=== PATIENT | female | born 1935 | race Caucasian/White ===

== ENCOUNTER 2017-01-08 07:59 | Inpatient (IN) | payer MEDICARE, BC ==
[2017-01-08 08:46] LABS: Hematocrit 43 % (35-47); Mean Corpuscular HGB Conc 33 g/dl (31-36); Mean Corpuscular Hemoglobin 29 pg (27-31); Mean Corpuscular Volume 88 fL (80-97); Mean Platelet Volume 8 um3 (7.4-10.4); Red Blood Count 4.89 10^6/ul (4.0-5.4); Red Cell Distribution Width 15 % (10.5-15); White Blood Count 13.2 10^3/ul (3.5-10.8)
[2017-01-08 08:57] LABS: Albumin 3.7 g/dL (3.2-5.2); BUN/Creatinine Ratio 15.2 (8-20); Calcium 9.6 mg/dL (8.6-10.3); EGFR African American 90.1 (>60); Magnesium 1.9 mg/dL (1.9-2.7); Potassium 3.9 mmol/L (3.5-5.0); Total Bilirubin 0.8 mg/dL (0.2-1.0); Total Protein 6.7 g/dL (6.4-8.9)
[2017-01-08 09:00] LABS: Troponin I 0.01 ng/mL (<0.04)
[2017-01-08 09:33] LABS: TSH (Thyroid Stimulating Horm) 6.83 mcIU/mL (0.34-5.60)
--- NOTE | 2017-01-08 09:35 | RAD ---
Indication: RIGHT hip pain post fall. Comparison: November 14, 2012 CT. Technique: AP pelvis and AP and frog-leg lateral views RIGHT hip. Report: Fractures of the RIGHT superior and inferior pubic rami with only mild inferior displacement. No additional pelvic fracture or joint diastases evident. The RIGHT hip is normally located. No suspicious cortical or trabecular irregularity evident at the RIGHT femoral neck to indicate fracture. Unremarkable soft tissue contours. IMPRESSION: RIGHT superior and inferior pubic rami fractures. No radiographic evidence for RIGHT hip fracture.
[2017-01-08 09:37] LABS: Urine Bacteria Absent (Absent); Urine Bilirubin Negative (Negative); Urine Glucose Negative (Negative); Urine Nitrite Negative (Negative)
[2017-01-08] MEDS ORDERED: HYDROmorphone* 1 MG/ML 1 ML SYR IV ONE (09:57)
[2017-01-08] MEDS ORDERED: Ondansetron INJ* 2 MG/ML VIAL IV ONE (09:57)
[2017-01-08] MEDS ORDERED: Ketorolac INJ* 30 MG/ML 1 ML VIAL IV ONE (09:57)
--- NOTE | 2017-01-08 10:57 | ED ---
Brendon Romo Angela, scribed for Shyam Lu MD on 01/08/17 at 0830 . Dizziness - HPI Summary HPI Summary: This pt is a 81 y/o female BIBA [facility] [place]/o right hip pain s/p fall today in the morning. Pt reports she felt light-headed and dizzy as she go up from her bed to go to the bathroom. Pt fell afterwards immediately first on her knee, scraping it, and hitting her right hip. Her hip pain is aggravated by movement and alleviated when resting. Pt denies knee pain, chest pain, SOB, palpitations, lower extremity pain, headache, head strike, abd pain. - History Of Current Complaint Chief Complaint: EDGeneral Stated Complaint: FALL/DIZZY Hx Obtained From: Patient Character: Lightheaded - now resolved, Dizzy - now resolved Aggravating Factor(s): Other - standing up abruptly from bed Alleviating Factor(s): Lying Down Associated Signs And Symptoms: Negative: Chest Pain, SOB, Palpitations, Fever, Chills, Inability to Walk - Allergies/Home Medications Allergies/Adverse Reactions: Allergies Allergy/AdvReac Type Severity Reaction Status Date / Time Iodine Allergy Hives Verified 01/08/17 08:20 Loratadine [From Claritin] Allergy See Comment Verified 01/08/17 08:20 Shellfish Allergy Allergy Hives Verified 01/08/17 08:20 ENVIRONMENTAL/SEASONAL Allergy SNEEZE,WATERY Uncoded 01/08/17 08:20 HAYFEVER EYES, CONGESTION PMH/Surg Hx/FS Hx/Imm Hx Endocrine/Hematology History: Reports: Hx Anticoagulant Therapy - coumadin Denies: Hx Diabetes, Hx Thyroid Disease Cardiovascular History: Reports: Other Cardiovascular Problems/Disorders Denies: Hx Hypertension, Hx Pacemaker/ICD Respiratory History: Reports: Hx Asthma - 10-12 YEARS, Hx Chronic Obstructive Pulmonary Disease (COPD), Hx Pulmonary Embolism - 1983-IN RIGHT LUNG, Other Respiratory Problems/Disorders - PE RIGHT LUNG History: Reports: Hx Kidney Stones - RIGHT SIDE Denies: Hx Renal Disease Sensory History: Reports: Hx Contacts or Glasses - GLASSES Denies: Hx Hearing Aid Opthamlomology History: Reports: Hx Contacts or Glasses - GLASSES Neurological History: Reports: Other Neuro Impairments/Disorders - OCCASIONAL VERTIGO Denies: Hx Dementia, Hx Seizures Psychiatric History: Denies: Hx Panic Disorder, Hx Substance Abuse - Cancer History Hx Chemotherapy: No Hx Radiation Therapy: No - Surgical History Surgery Procedure, Year, and Place: 1966 RIGHT INGUINAL HERNIA REPAIR, [facility]. 1984 HYSTERECTOMY, [facility] [place]. 2006 BOWEL RESECTION, [facility] [place]. KIDNEY STONE REMOVAL 1 YR. TEETH REMOVED 1 YR AGO/ DENTAL IMPLANTS PUT IN Hx Anesthesia Reactions: No Infectious Disease History: Denies: Hx Hepatitis, Hx Human Immunodeficiency Virus (HIV), Traveled Outside the [place] in Last 30 Days - Social History Alcohol Use: Rare Substance Use Type: Reports: None Smoking Status (MU): Never Smoked Tobacco Review of Systems Negative: Fever, Chills Negative: Chest Pain Negative: Shortness Of Breath Negative: Abdominal Pain Positive: Other - Right hip pain Neurological: Other - POSITIVE: dizziness (now resolved) Negative: Headache All Other Systems Reviewed And Are Negative: Yes Physical Exam Triage Information Reviewed: Yes Vital Signs On Initial Exam: Initial Vitals Temp Pulse Resp BP Pulse Ox 98.9 F 76 20 130/55 95 01/08/17 08:17 01/08/17 08:17 01/08/17 08:17 01/08/17 08:17 01/08/17 08:17 Vital Signs Reviewed: Yes Appearance: Positive: Well-Appearing, No Pain Distress Skin: Positive: Warm, Skin Color Reflects Adequate Perfusion, Dry Head/Face: Positive: Normal Head/Face Inspection Eyes: Positive: Normal ENT: Positive: Normal ENT inspection Neck: Positive: Supple, Nontender Respiratory/Lung Sounds: Positive: Clear to Auscultation, Breath Sounds Present Cardiovascular: Positive: RRR Abdomen Description: Positive: Nontender, Soft Bowel Sounds: Positive: Present Musculoskeletal: Positive: Normal Neurological: Positive: Normal Psychiatric: Positive: Normal, Affect/Mood Appropriate Diagnostics - Vital Signs Vital Signs Temp Pulse Resp BP Pulse Ox 01/08/17 08: 98.9 F 76 20 130/55 95 - Laboratory Lab Results: Lab Results 01/08/17 01/08/17 01/08/17 Range/Units 08:30 08:30 08:30 WBC 13.2 H (3.5-10.8) 10^3/ul RBC 4.89 (4.0-5.4) 10^6/ul Hgb 14.0 (12.0-16.0) g/dl Hct 43 (35-47) % MCV 88 (80-97) fL MCH 29 (27-31) pg MCHC 33 (31-36) g/dl RDW 15 (10.5-15) % Plt Count 218 (150-450) 10^3/ul MPV 8 (7.4-10.4) um3 Neut % (Auto) 84.5 H (38-83) % Lymph % (Auto) 7.3 L (25-47) % [place] % (Auto) 6.9 (1-9) % Eos % (Auto) 0.9 (0-6) % Baso % (Auto) 0.4 (0-2) % Absolute Neuts (auto) 11.1 H (1.5-7.7) 10^3/ul Absolute Lymphs (auto) 1.0 (1.0-4.8) 10^3/ul Absolute Monos (auto) 0.9 H (0-0.8) 10^3/ul Absolute Eos (auto) 0.1 (0-0.6) 10^3/ul Absolute Basos (auto) 0.1 (0-0.2) 10^3/ul Absolute Nucleated RBC 0 10^3/ul Nucleated RBC % 0 INR (Anticoag Therapy) (0.89-1.11) Sodium 141 (133-145) mmol/L Potassium 3.9 (3.5-5.0) mmol/L Chloride 107 (101-111) mmol/L Carbon Dioxide 29 (22-32) mmol/L Anion Gap 5 (2-11) mmol/L BUN 12 (6-24) mg/dL Creatinine 0.79 (0.51-0.95) mg/dL Est GFR ( Amer) 90.1 (>60) Est GFR (Non-Af Amer) 70.0 (>60) BUN/Creatinine Ratio 15.2 (8-20) Glucose 118 H (70-100) mg/dL Lactic Acid 1.9 (0.5-2.0) mmol/L Calcium 9.6 (8.6-10.3) mg/dL Magnesium 1.9 (1.9-2.7) mg/dL Total Bilirubin 0.80 (0.2-1.0) mg/dL AST 19 (13-39) U/L ALT 11 (7-52) U/L Alkaline Phosphatase 75 (34-104) U/L Troponin I 0.01 (<0.04) ng/mL Total Protein 6.7 (6.4-8.9) g/dL Albumin 3.7 (3.2-5.2) g/dL Globulin 3.0 (2-4) g/dL Albumin/Globulin Ratio 1.2 (1-3) TSH 6.83 H (0.34-5.60) mcIU/mL Urine Color Urine Appearance Urine pH (5-9) Ur Specific [place] (1.010-1.030) Urine Protein (Negative) Urine Ketones (Negative) Urine Blood (Negative) Urine Nitrate (Negative) Urine Bilirubin (Negative) Urine Urobilinogen (Negative) Ur Leukocyte Esterase (Negative) Urine WBC (Auto) (Absent) Urine RBC (Auto) (Absent) Urine Bacteria (Absent) Urine Glucose (Negative) Urine Ascorbic Acid (Negative) 01/08/17 01/08/17 Range/Units 08:30 09:05 WBC (3.5-10.8) 10^3/ul RBC (4.0-5.4) 10^6/ul Hgb (12.0-16.0) g/dl Hct (35-47) % MCV (80-97) fL MCH (27-31) pg MCHC (31-36) g/dl RDW (10.5-15) % Plt Count (150-450) 10^3/ul MPV (7.4-10.4) um3 Neut % (Auto) (38-83) % Lymph % (Auto) (25-47) % [place] % (Auto) (1-9) % Eos % (Auto) (0-6) % Baso % (Auto) (0-2) % Absolute Neuts (auto) (1.5-7.7) 10^3/ul Absolute Lymphs (auto) (1.0-4.8) 10^3/ul Absolute Monos (auto) (0-0.8) 10^3/ul Absolute Eos (auto) (0-0.6) 10^3/ul Absolute Basos (auto) (0-0.2) 10^3/ul Absolute Nucleated RBC 10^3/ul Nucleated RBC % INR (Anticoag Therapy) 1.25 H (0.89-1.11) Sodium (133-145) mmol/L Potassium (3.5-5.0) mmol/L Chloride (101-111) mmol/L Carbon Dioxide (22-32) mmol/L Anion Gap (2-11) mmol/L BUN (6-24) mg/dL Creatinine (0.51-0.95) mg/dL Est GFR ( Amer) (>60) Est GFR (Non-Af Amer) (>60) BUN/Creatinine Ratio (8-20) Glucose (70-100) mg/dL Lactic Acid (0.5-2.0) mmol/L Calcium (8.6-10.3) mg/dL Magnesium (1.9-2.7) mg/dL Total Bilirubin (0.2-1.0) mg/dL AST (13-39) U/L ALT (7-52) U/L Alkaline Phosphatase (34-104) U/L Troponin I (<0.04) ng/mL Total Protein (6.4-8.9) g/dL Albumin (3.2-5.2) g/dL Globulin (2-4) g/dL Albumin/Globulin Ratio (1-3) TSH (0.34-5.60) mcIU/mL Urine Color Yellow Urine Appearance Clear Urine pH 5.0 (5-9) Ur Specific [place] 1.009 L (1.010-1.030) Urine Protein Negative (Negative) Urine Ketones Negative (Negative) Urine Blood 3+ H (Negative) Urine Nitrate Negative (Negative) Urine Bilirubin Negative (Negative) Urine Urobilinogen Negative (Negative) Ur Leukocyte Esterase Negative (Negative) Urine WBC (Auto) Trace(0-5/hpf) (Absent) Urine RBC (Auto) 3+(>10/hpf) H (Absent) Urine Bacteria Absent (Absent) Urine Glucose Negative (Negative) Urine Ascorbic Acid * H (Negative) Result Diagrams: 01/08/17 08:30 01/08/17 08:30 Lab Statement: Any lab studies that have been ordered have been reviewed, and results considered in the medical decision making process. - Radiology Right Hip XR Xray Interpretation: No Acute Changes - IMPRESSION: Right superior and inferior pubic rami fractures. No radiographic evidence for right hip fracture. ED physician has reviewed this radiology report and agrees. Radiology Interpretation Completed By: Radiologist - EKG 8:52 Cardiac Rate: NL - 76 bpm EKG Rhythm: Sinus Rhythm Dizzy Course/Dx - Course Course Of Treatment: Ms. Kendrick presented C/O right hip pain after getting up quicky from bed to use the bathroom. Normally she takes her time and this time she got lightheaded and dizzy but doesn't think she fainted. Her W/U was normal here except for right pelvic fractures. After a small amount of IV pain medication, she was able to bear weight however she fainted again. She was not on the monitor at the time. She will be admitted to the hospitalist service. - Diagnoses Provider Diagnoses: Pelvic fracture, Syncope - Provider Notifications Discussed Care Of Patient With: Inés Loomis Time Discussed With Above Provider: 10:30 Instructed by Provider To: Other - Discussed pt's case with Dr. Loomis. She agreed to admit the pt. Discharge - Discharge Plan Condition: Stable Disposition: ADMITTED TO [facility] Referrals: Staci Bruce MD [Primary Care Provider] - The documentation as recorded by the Brendon duran Angela accurately reflects the service I personally performed and the decisions made by , Shyam Lu MD.
--- NOTE | 2017-01-08 11:01 | RAD ---
INDICATION: Syncope COMPARISON: December 08, 2007 TECHNIQUE: Noncontrast axial source images were acquired from the skull base to the vertex. FINDINGS: Ventricles/sulci: There is cortical atrophy with compensatory dilatation of the CSF spaces. Brain parenchyma: There is no focal parenchymal finding, evidence of intracranial mass, or intracranial mass effect. Intracranial hemorrhage:None. Extra-axial spaces: There are no abnormal extra axial fluid collections or evidence of extra-axial mass. Calvarium: There is no calvarial fracture or other calvarial abnormality. Scalp: There is no evidence of scalp or extracalvarial soft tissue abnormality. Paranasal sinuses/mastoid: The paranasal sinuses and mastoid air cells are clear. Other: None. IMPRESSION: Moderate cortical atrophy. No acute findings.
--- NOTE | 2017-01-08 11:03 | RAD ---
INDICATION: Short of breath COMPARISON: November 29, 2013 TECHNIQUE: PA and lateral dual-energy views were obtained. FINDINGS: Bones/Soft Tissues: There are no acute bony findings. Cardiomediastinal: The cardiomediastinal silhouette is normal. Lungs: There is mild chronic nodular infiltrative change in the right middle lobe. The remaining lung carcamo are clear. Pleura: There are no pleural effusions. Other: None IMPRESSION: MILD, CHRONIC, RIGHT MIDDLE LOBE FINDINGS. NO ACUTE CHANGES
[2017-01-08] MEDS ORDERED: NS 0.9% 1000 ML* 1,000 ML IV ONE (11:13)
[2017-01-08] MEDS ORDERED: Albuterol 2.5 MG/3 ML NEB.SOL* (0.083%) INH PRN (12:14)
[2017-01-08] MEDS ORDERED: Ondansetron INJ* 2 MG/ML VIAL IV PRN (12:14)
[2017-01-08] MEDS ORDERED: Acetaminophen TAB* 325 MG PO PRN (12:14)
[2017-01-08] MEDS ORDERED: Perflutren Lipid Microsphere* 3 ML VIAL ONE (15:28)
--- NOTE | 2017-01-08 15:45 | HP ---
ATTENDING'S ADDENDUM NOW INCLUDED ON THIS REPORT CC: Dr. Lerner * HISTORY AND PHYSICAL: DATE OF ADMISSION: 01/08/17 PRIMARY CARE PROVIDER: Dr. Lerner from [place]. ATTENDING PHYSICIAN WHILE IN THE HOSPITAL: Inés Loomis MD * (report dictated by José Del Rio NP) CHIEF COMPLAINT: Fall. HISTORY OF PRESENTING ILLNESS: Mrs. Kendrick is an 81-year-old female patient. She has a history of emphysema. She is on O2 2L as needed and at bedtime. She comes in today because she was getting up to use the bathroom, she was using her walker and she fell. She said she remembers the fall, she did not hit her head, she landed on her knee, landed on her right hip. She had a significant amount of pain. She tried getting up, but could not. She was able to reach her LifeAlert and she pressed this and the ambulance was summoned and she was brought into the hospital. She denied having any chest pain prior to or after the fall. She said she does not believe she passed out. She denied any recent cough or fevers or chills. She denies feeling any more short of breath than at her baseline. She states that because of the fall, she was brought into the ER and ultimately was found to have a pelvic fracture. The patient was in the ED and they were getting her up to ambulate her because they were going to send her home, but unfortunately she had a syncopal episode there. She did receive Dilaudid prior to this. The last thing she remembers was getting up with a walker, then the next thing she woke up, she was in the ER stretcher. She remembers trying to get up to walk. She thinks she may have been out a minute. She denied any chest pain prior to or after this event. She said she did not get sweaty. She denied having any lightheadedness. There was again concern, because of the syncope and the fact of the fracture, that she may not be able to manage at home. We were asked to evaluate for admission. PAST MEDICAL HISTORY: Significant for: 1. PE. 2. DVT. 3. COPD, she is on 2 L as needed and 2 L at night. PAST SURGICAL HISTORY: She has had a partial colectomy, hysterectomy, and hernia repair. MEDICATIONS: Home meds according to the list that was obtained include: 1. Flovent 2 puffs inhaled b.i.d. 2. Vitamin D3 50,000 units p.o. weekly. 3. Multivitamin 1 tablet p.o. b.i.d. 4. Calcium 1 tablet p.o. daily. 5. Xarelto 20 mg p.o. daily. 6. Symbicort 2 puffs inhaled daily. 7. Clarinex 5 mg p.o. daily. 8. Spiriva 1 capsule inhaled daily. 9. Fosamax 70 mg p.o. weekly. 10. Albuterol 2 puffs inhaled q.i.d. ALLERGIES TO MEDICATIONS: Include IODINE, SHELLFISH, and ENVIRONMENTAL ALLERGIES. FAMILY HISTORY: Mother was diabetic. Father had a history of cancer. SOCIAL HISTORY: She does not smoke. She lives alone. Surrogate decision maker is her daughter, Viktoria. REVIEW OF SYSTEMS: There are no new documented fevers. She denied having any significant weight change. There was no double vision. She denies having any ear discharge. There is no rhinorrhea. No sore throat. No thyroid enlargement. She denied any chest pain. There was no orthopnea. There was no dominant nocturnal dyspnea. There was no abdominal pain. There was no nausea. No vomiting. No dysuria. There was no frequency. There was no loss of consciousness in the ER. She denied any seizure. Review of 14 systems was completed, all others negative. PHYSICAL EXAMINATION GENERAL: At this time, Mrs. Kendrick is an 81-year-old female patient. She is sitting in the hospital bed. She does not appear to be in any acute distress. VITAL SIGNS: Reveals blood pressure 135/51, pulse 92, respirations 18, O2 sat 93% on 5 L, and a temperature of 98.0. HEENT: Head is atraumatic and normocephalic. Eyes: EOMs are intact. Sclerae anicteric and not pale. Throat: Oral mucosa appears to be moist. No oropharyngeal erythema. NECK: Supple. LUNGS: Clear to auscultation. No wheezes, rales, or rhonchi. HEART: Sounds S1, S2. Regular rate and rhythm. No murmurs, rubs, or gallops. ABDOMEN: Soft, flat, nontender. Bowel sounds present. EXTREMITIES: Pulses 2+ throughout. She can move the upper extremities with 5/ 5 strength and the left lower extremity. She does have limited range of motion in the right lower extremity because of pain. Distal CSM checks are intact. NEUROLOGIC: She is awake, alert, oriented x3. Tongue midline. Dairy Machine Operator Farmworker were equal. She had no gross focal deficits. SKIN: There is a small abrasion to the right knee. LABORATORY DATA/DIAGNOSTIC STUDIES: WBC of 13.2, RBC of 4.89, hemoglobin 14.0 , hematocrit 43, and platelet count of 218. INR 1.25. Sodium 141, potassium 3.9, chloride 107, bicarb 29, BUN 12, creatinine of 0.79, glucose 118. Lactate 1.9. Calcium 9.6. Mag 1.9. Total bili 0.8, AST 19, ALT 11. Troponin 0.01. TSH is 6.83. Urine showed 3+ blood, 3+ rbc. She did have a chest x-ray obtained today, which showed chronic right mild lobe findings, no acute changes. Brain CT showed moderate cortical atrophy, no acute findings. Hip, pelvis x-ray showed right superior and inferior pubic rami fractures, no radiographic evidence for right hip fracture. EKG showed a normal sinus rhythm, rate of 76, no ST elevations or T wave inversions. It is reviewed to the previous EKG, appears to be similar. Old medical records were reviewed. ASSESSMENT AND PLAN: Mrs. Kendrick is an 81-year-old female patient who sustained a mechanical fall today and while in the ER, had a syncopal episode. She sustained a pubic rami fracture. We were asked to evaluate for admission. She will be admitted under observation status for: 1. Pubic rami fracture. At this point, I did order some [place] for pain. I ordered a PT evaluation and also OT evaluation with social work eval as she may need placement and we will control her pain with [place]. 2. Syncope. Again, she did syncopize after having 0.5 mg of IV Dilaudid, which certainly may have contributed; however, I do think it is warranted to go ahead and place her on telemetry, cycle her troponins, check an echo, and check orthostatic blood pressures. 3. History of pulmonary embolism and deep venous thrombosis. We will continue her Xarelto. 4. Chronic obstructive pulmonary disease. Continue her nebulizers as prescribed and her oxygen. 5. DVT prophylaxis. Continue Xarelto. 6. Fluid, electrolytes, and nutrition. She can have a heart healthy diet. 7. Code status. She is a DNR. TIME SPENT: On the admission was approximately 60 minutes; greater than half the time spent [id number] with the patient obtaining my history and physical, the other half time was spent going over the plan of care with the patient and implementing plan of care. I did discuss the plan of care with my attending, Dr. Loomis; she is in agreement. JOSÉ DEL RIO NP ADDENDUM: Ms. Kendrick is an 81-year-old female who had a mechanical fall earlier on today and suffered from pelvic fractures. She was evaluated in the ER and she was deemed to be a good candidate for possible discharge. She stood up after dose of IV pain narcotics and had a brief episode of syncope. The patient is going to be placed on overnight observation on telemetry monitored floor with diagnoses of pelvic fractures and syncope. For further details of the patient's presentation and plan, please see history and physical dictated by José Del Rio on 01/08/17 with which I agree. INÉS LOOMIS MD [id number]/[facility] #: [id number]/CPS #: [id number] JORGE
--- NOTE | 2017-01-08 16:09 | HP ---
*ADDENDUM: Ms. Kendrick is an 81-year-old female who had a mechanical fall earlier on today and suffered from pelvic fractures. She was evaluated in the ER and she was deemed to be a good candidate for possible discharge. She stood up after dose of IV pain narcotics and had a brief episode of syncope. The patient is going to be placed on overnight observation on telemetry monitored floor with diagnoses of pelvic fractures and syncope. For further details of the patient's presentation and plan, please see history and physical dictated by José Del Rio on 01/08/17 with which I agree. [id number]/[facility] #: [id number] MTDD
--- NOTE | 2017-01-08 17:13 | ECHO ---
Patient: SRIRAM SEVERINO [facility] Rec#: [id number] : 1935 Date: 01/08/2017 Age: 81y Height: 167.64 cm / 66.0 in Weight: 72.57 kg / 159.9 lbs Sex: F BSA: 1.82 Room#: 448 Admit Date#: 01/08/2017 Type: Inpatient Referring: José Del Rio NP Reading: You Elkins MD Sawmill Equipment Operator: Tyra Shook RDCS,RDMS Transthoracic Echocardiogram Indication: Syncope BP: 102/49 HR: 101 Rhythm: NSR Findings History: AFIB, COPD, PE Technical Comments: The study is technically limited due to poor acoustic windows. Completed 1700 The study is technically limited due to the patient's history of COPD. Left Ventricle: The left ventricular chamber size is decreased. Mild concentric left ventricular hypertrophy is observed. The left ventricle appears hyperdynamic. The estimated ejection fraction is greater than 65%. There is an E to A reversal in the mitral valve flow pattern suggestive of diastolic dysfunction. Left Atrium: The left atrial chamber size is normal. Right Ventricle: The right ventricular cavity size is normal. Right Atrium: The right atrial cavity size is normal. Aortic Valve: The aortic valve structure is not well visualized. There is no evidence of aortic regurgitation. There is no evidence of aortic stenosis. Mitral Valve: There is mitral annular calcification. The mitral valve leaflets are mildly thickened. There is no evidence of mitral regurgitation. There is no evidence of mitral stenosis. Tricuspid Valve: The tricuspid valve leaflets are not thickened. There is no evidence of tricuspid valve regurgitation. Unable to estimate the right ventricular systolic pressure. Pulmonic Valve: The pulmonic valve structure is not well visualized. Pericardium: There is no significant pericardial effusion. Aorta: There is no dilatation of the ascending aorta. There is no dilatation of the aortic arch. The aortic root is not well visualized. Pulmonary Artery: The main pulmonary artery is not well visualized. Venous: The inferior vena cava appears normal in size. Contrast: Definity was used to optimize study. A total of 4 ml was used Conclusions The study is technically limited due to poor acoustic windows. Completed 1700 The study is technically limited due to the patient's history of COPD. Extremely limited study for accurate analysis. The left ventricular chamber size is decreased. Mild concentric left ventricular hypertrophy is observed. The left ventricle appears hyperdynamic. A possible LV outflow gradient , mild at rest, unable to be assessed due to poor imaging. No accurate comments on valve structures can be made due to suboptimal images. No reports of prior studies are offered for comparison Measurements Name Value Normal Range RVDdMajor (2D) 2.4 cm (2.2 - 4.4) RAd ISD 4CH 4.1 cm (3.4 - 4.9) RA (A4C)W 3.9 cm (2.9 - 4.6) Ascending Ao 2.7 cm (2.1 - 3.4) Aortic arch 2.9 cm (1.8 - 3.4) LAd ISD 4CH 4.3 cm (2.9 - 5.3) LA ISD 4CH W 3.8 cm (2.5 - 4.5) Name Value Normal Range LA ESV SP 4CH (A/L) 46.03 ml - LA ESV SP 4CH (MOD) 42.09 ml - Name Value Normal Range MV E-wave Vmax 0.5 m/sec - MV deceleration time 184 msec - MV A-wave Vmax 0.9 m/sec - MV E:A ratio 0.6 ratio - LV lateral e' Vmax 0.08 m/sec - LV E:e' lateral ratio 6.3 ratio - Name Value Normal Range AV Vmax 1.6 m/sec - AV VTI 25 cm - AV peak gradient 10 mmHg - AV mean gradient 5.7 mmHg - LVOT Vmax 1.1 m/sec - LVOT VTI 19.3 cm - LVOT peak gradient 5 mmHg - LVOT mean gradient 2.4 mmHg - MELI Vmax 0.7 m/sec - Name Value Normal Range RAP 8 mmHg - IVC diameter 2.1 cm - Name Value Normal Range PV Vmax 0.7 m/sec - PV peak gradient 2 mmHg -
[2017-01-08 19:58] LABS: Hematocrit 37 % (35-47); Hemoglobin 12.3 g/dl (12.0-16.0); Mean Corpuscular HGB Conc 33 g/dl (31-36); Mean Corpuscular Hemoglobin 29 pg (27-31); Mean Corpuscular Volume 89 fL (80-97); Mean Platelet Volume 8 um3 (7.4-10.4); Red Cell Distribution Width 15 % (10.5-15); White Blood Count 12.9 10^3/ul (3.5-10.8)
[2017-01-08 20:12] LABS: BUN/Creatinine Ratio 18.5 (8-20); Calcium 8.7 mg/dL (8.6-10.3); EGFR African American 75.5 (>60); EGFR Non-African American 58.7 (>60); Magnesium 1.8 mg/dL (1.9-2.7); Potassium 4.3 mmol/L (3.5-5.0)
[2017-01-08] MEDS: Mometasone 220 MCG MDI INH SCH (20:51)
[2017-01-08] MEDS: Cetirizine* 10 MG TAB PO SCH (20:56)
[2017-01-08] MEDS: Multivitamins/Minera Areds(NF) 1 CAP CAP PO SCH (20:59)
[2017-01-08] MEDS: HYDROcodone/ACETAMIN 5-325 MG* 1 TAB PO PRN (21:03)
[2017-01-09 05:22] LABS: Hematocrit 33 % (35-47); Mean Corpuscular HGB Conc 33 g/dl (31-36); Mean Corpuscular Hemoglobin 29 pg (27-31); Mean Corpuscular Volume 89 fL (80-97); Mean Platelet Volume 8 um3 (7.4-10.4); Red Blood Count 3.74 10^6/ul (4.0-5.4); Red Cell Distribution Width 15 % (10.5-15)
[2017-01-09 05:35] LABS: BUN/Creatinine Ratio 22.1 (8-20); Calcium 8.5 mg/dL (8.6-10.3); EGFR African American 81.7 (>60); EGFR Non-African American 63.5 (>60); Potassium 4.2 mmol/L (3.5-5.0)
[2017-01-09] MEDS: Multivitamins/Minera Areds(NF) 1 CAP CAP PO SCH (07:48)
[2017-01-09] MEDS: Rivaroxaban TAB(*) 20 MG TAB PO SCH (07:50)
[2017-01-09] MEDS: Tiotropium CAP.INH* CAP.INH/18 MCG INH SCH (08:51)
[2017-01-09] MEDS: Mometasone/Formoter 200/5 MDI INH SCH (08:51)
[2017-01-09] MEDS: Mometasone 220 MCG MDI INH SCH ×2 (08:58→20:03)
[2017-01-09] MEDS ORDERED: Spiriva Inhaler DEVICE* 1 EACH DEVICE ONE (09:00)
[2017-01-09] MEDS: HYDROcodone/ACETAMIN 5-325 MG* 1 TAB PO PRN ×2 (09:19→18:48)
--- NOTE | 2017-01-09 16:50 | PN ---
Subjective Date of Service: 01/09/17 Interval History: Patient feeling better but does not think she can be safe at home in this condition. Objective Active Medications: Acetaminophen (Tylenol Tab*) 650 mg PO Q4H PRN PRN Reason: FEVER/PAIN Hydrocodone Bitart/Acetaminophen ([place] 5-325 Tab*) 1 tab PO Q4H PRN PRN Reason: PAIN Last Admin: 01/09/17 09:19 Dose: 1 tab Albuterol (Ventolin 2.5 Mg/3 Ml Neb.Zeina*) 2.5 mg INH Q2H PRN PRN Reason: SOB/WHEEZING Cetirizine HCl (Zyrtec*) 10 mg PO BEDTIME [facility] PRN Reason: Protocol Last Admin: 01/08/17 20:56 Dose: 10 mg Mometasone Furoate (Asmanex 220 Mcg Mdi *) 2 puff INH BID [facility] Last Admin: 01/09/17 08:58 Dose: 2 puff Mometasone Furoate/Formoterol Fumar (Dulera 200/5 Mdi*) 2 puff INH DAILY [facility] PRN Reason: Protocol Last Admin: 01/09/17 08:51 Dose: 2 puff Multivitamins/Minerals (Preservision Areds(Multivitamins/Mineral)(Nf)) 1 cap PO BID [facility] Last Admin: 01/09/17 07:48 Dose: Not Given Ondansetron HCl (Zofran Inj*) 4 mg IV Q6H PRN PRN Reason: NAUSEA Rivaroxaban (Xarelto (*)) 20 mg PO DAILY [facility] Last Admin: 01/09/17 07:50 Dose: 20 mg Tiotropium [place] (Spiriva Cap.Inh*) 1 cap INH DAILY [facility] Last Admin: 01/09/17 08:51 Dose: 1 cap Vital Signs 01/09/17 01/09/17 01/09/17 09:19 11:11 11:19 Temperature 98.4 F Pulse Rate 91 Respiratory 18 20 20 Rate Blood Pressure 103/44 (mmHg) O2 Sat by Pulse 92 Oximetry 01/09/17 15:41 Temperature 98.5 F Pulse Rate 88 Respiratory 24 Rate Blood Pressure 107/49 (mmHg) O2 Sat by Pulse 92 Oximetry Oxygen Devices in Use Now: Nasal Cannula Appearance: Elderly woman lying in bed in NAD Eyes: No Scleral Icterus Ears/Nose/Mouth/Throat: Clear Oropharnyx Neck: No Thyroid Enlargement, Masses Respiratory: Clear to Auscultation Cardiovascular: - - S1S2 idalmis Abdominal: No Hepatosplenomegaly Lymphatic: No Cervical Adenopathy Extremities: No Clubbing, Cyanosis Skin: No Rash or Ulcers Neurological: Alert and Oriented x 3 Result Diagrams: 01/09/17 04:39 01/09/17 04:39 Additional Lab and Data: Lab Results 01/08/17 01/08/17 01/08/17 Range/Units 08:30 08:30 08:30 WBC 13.2 H (3.5-10.8) 10^3/ul RBC 4.89 (4.0-5.4) 10^6/ul Hgb 14.0 (12.0-16.0) g/dl Hct 43 (35-47) % MCV 88 (80-97) fL MCH 29 (27-31) pg MCHC 33 (31-36) g/dl RDW 15 (10.5-15) % Plt Count 218 (150-450) 10^3/ul MPV 8 (7.4-10.4) um3 Neut % (Auto) 84.5 H (38-83) % Lymph % (Auto) 7.3 L (25-47) % Fisher % (Auto) 6.9 (1-9) % Eos % (Auto) 0.9 (0-6) % Baso % (Auto) 0.4 (0-2) % Absolute Neuts (auto) 11.1 H (1.5-7.7) 10^3/ul Absolute Lymphs (auto) 1.0 (1.0-4.8) 10^3/ul Absolute Monos (auto) 0.9 H (0-0.8) 10^3/ul Absolute Eos (auto) 0.1 (0-0.6) 10^3/ul Absolute Basos (auto) 0.1 (0-0.2) 10^3/ul Absolute Nucleated RBC 0 10^3/ul Nucleated RBC % 0 INR (Anticoag Therapy) (0.89-1.11) Sodium 141 (133-145) mmol/L Potassium 3.9 (3.5-5.0) mmol/L Chloride 107 (101-111) mmol/L Carbon Dioxide 29 (22-32) mmol/L Anion Gap 5 (2-11) mmol/L BUN 12 (6-24) mg/dL Creatinine 0.79 (0.51-0.95) mg/dL Est GFR ( Amer) 90.1 (>60) Est GFR (Non-Af Amer) 70.0 (>60) BUN/Creatinine Ratio 15.2 (8-20) Glucose 118 H (70-100) mg/dL Lactic Acid 1.9 (0.5-2.0) mmol/L Calcium 9.6 (8.6-10.3) mg/dL Magnesium 1.9 (1.9-2.7) mg/dL Total Bilirubin 0.80 (0.2-1.0) mg/dL AST 19 (13-39) U/L ALT 11 (7-52) U/L Alkaline Phosphatase 75 (34-104) U/L Troponin I 0.01 (<0.04) ng/mL Total Protein 6.7 (6.4-8.9) g/dL Albumin 3.7 (3.2-5.2) g/dL Globulin 3.0 (2-4) g/dL Albumin/Globulin Ratio 1.2 (1-3) TSH 6.83 H (0.34-5.60) mcIU/mL Urine Color Urine Appearance Urine pH (5-9) Ur Specific [place] (1.010-1.030) Urine Protein (Negative) Urine Ketones (Negative) Urine Blood (Negative) Urine Nitrate (Negative) Urine Bilirubin (Negative) Urine Urobilinogen (Negative) Ur Leukocyte Esterase (Negative) Urine WBC (Auto) (Absent) Urine RBC (Auto) (Absent) Urine Bacteria (Absent) Urine Glucose (Negative) Urine Ascorbic Acid (Negative) 01/08/17 01/08/17 Range/Units 08:30 09:05 WBC (3.5-10.8) 10^3/ul RBC (4.0-5.4) 10^6/ul Hgb (12.0-16.0) g/dl Hct (35-47) % MCV (80-97) fL MCH (27-31) pg MCHC (31-36) g/dl RDW (10.5-15) % Plt Count (150-450) 10^3/ul MPV (7.4-10.4) um3 Neut % (Auto) (38-83) % Lymph % (Auto) (25-47) % Fisher % (Auto) (1-9) % Eos % (Auto) (0-6) % Baso % (Auto) (0-2) % Absolute Neuts (auto) (1.5-7.7) 10^3/ul Absolute Lymphs (auto) (1.0-4.8) 10^3/ul Absolute Monos (auto) (0-0.8) 10^3/ul Absolute Eos (auto) (0-0.6) 10^3/ul Absolute Basos (auto) (0-0.2) 10^3/ul Absolute Nucleated RBC 10^3/ul Nucleated RBC % INR (Anticoag Therapy) 1.25 H (0.89-1.11) Sodium (133-145) mmol/L Potassium (3.5-5.0) mmol/L Chloride (101-111) mmol/L Carbon Dioxide (22-32) mmol/L Anion Gap (2-11) mmol/L BUN (6-24) mg/dL Creatinine (0.51-0.95) mg/dL Est GFR ( Amer) (>60) Est GFR (Non-Af Amer) (>60) BUN/Creatinine Ratio (8-20) Glucose (70-100) mg/dL Lactic Acid (0.5-2.0) mmol/L Calcium (8.6-10.3) mg/dL Magnesium (1.9-2.7) mg/dL Total Bilirubin (0.2-1.0) mg/dL AST (13-39) U/L ALT (7-52) U/L Alkaline Phosphatase (34-104) U/L Troponin I (<0.04) ng/mL Total Protein (6.4-8.9) g/dL Albumin (3.2-5.2) g/dL Globulin (2-4) g/dL Albumin/Globulin Ratio (1-3) TSH (0.34-5.60) mcIU/mL Urine Color Yellow Urine Appearance Clear Urine pH 5.0 (5-9) Ur Specific [place] 1.009 L (1.010-1.030) Urine Protein Negative (Negative) Urine Ketones Negative (Negative) Urine Blood 3+ H (Negative) Urine Nitrate Negative (Negative) Urine Bilirubin Negative (Negative) Urine Urobilinogen Negative (Negative) Ur Leukocyte Esterase Negative (Negative) Urine WBC (Auto) Trace(0-5/hpf) (Absent) Urine RBC (Auto) 3+(>10/hpf) H (Absent) Urine Bacteria Absent (Absent) Urine Glucose Negative (Negative) Urine Ascorbic Acid * H (Negative) Assess/Plan/Problems-Billing Assessment: 81 year old woman who fell yesterday and is unsure if she passed out but did have a pelvic fracture. - Patient Problems (1) Pelvic fracture Current Visit: Yes Status: Acute Code(s): S32.9XXA - FRACTURE OF UNSP PARTS OF LUMBOSACRAL SPINE AND PELVIS, INIT SNOMED Code(s): 78312316 Comment: Appreciate PT input. Continue PT. May benefit from STR. (2) Syncope Current Visit: Yes Status: Acute Code(s): R55 - SYNCOPE AND COLLAPSE SNOMED Code(s): 215682333 Comment: TTE not helpful. Should have CT scan. Interrogation of PM wnl. (3) Pulmonary embolism Current Visit: Yes Status: Acute Code(s): I26.99 - OTHER PULMONARY EMBOLISM WITHOUT ACUTE COR PULMONALE SNOMED Code(s): 78564506 Comment: Continue xarelto. Stable. (4) COPD (chronic obstructive pulmonary disease) Current Visit: Yes Status: Acute Code(s): J44.9 - CHRONIC OBSTRUCTIVE PULMONARY DISEASE, UNSPECIFIED SNOMED Code(s): 39990868 Comment: Stable. Continue inhalers. (5) DNR (do not resuscitate) Current Visit: Yes Status: Acute
[2017-01-09] MEDS: PTO:Multivitamins/Minerals AREDS2 cap PO SCH (21:10)
[2017-01-09] MEDS: Cetirizine* 10 MG TAB PO SCH (21:10)
[2017-01-10] MEDS: HYDROcodone/ACETAMIN 5-325 MG* 1 TAB PO PRN ×3 (03:43→15:41)
[2017-01-10] MEDS: Rivaroxaban TAB(*) 20 MG TAB PO SCH (07:24)
[2017-01-10] MEDS: [UNRECOGNIZED DRUG - OTHER] PO SCH (07:24)
[2017-01-10] MEDS: MULTIVITAMIN PO SCH (07:24)
[2017-01-10] MEDS: PTO:Multivitamins/Minerals AREDS2 cap PO SCH ×2 (07:24→21:31)
[2017-01-10] MEDS: Tiotropium CAP.INH* CAP.INH/18 MCG INH SCH (08:25)
[2017-01-10] MEDS: Mometasone 220 MCG MDI INH SCH ×2 (08:25→20:04)
[2017-01-10] MEDS: Mometasone/Formoter 200/5 MDI INH SCH (08:25)
--- NOTE | 2017-01-10 15:33 | PN ---
Subjective Date of Service: 01/10/17 Interval History: Patient feels better. Still with pain but better controlled. Objective Active Medications: Acetaminophen (Tylenol Tab*) 650 mg PO Q4H PRN PRN Reason: FEVER/PAIN Hydrocodone Bitart/Acetaminophen ([place] 5-325 Tab*) 1 tab PO Q4H PRN PRN Reason: PAIN Last Admin: 01/10/17 10:12 Dose: 1 tab Albuterol (Ventolin 2.5 Mg/3 Ml Neb.Zeina*) 2.5 mg INH Q2H PRN PRN Reason: SOB/WHEEZING Cetirizine HCl (Zyrtec*) 10 mg PO BEDTIME [facility] PRN Reason: Protocol Last Admin: 01/09/17 21:10 Dose: 10 mg Mometasone Furoate (Asmanex 220 Mcg Mdi *) 2 puff INH BID [facility] Last Admin: 01/10/17 08:25 Dose: 2 puff Mometasone Furoate/Formoterol Fumar (Dulera 200/5 Mdi*) 2 puff INH DAILY [facility] PRN Reason: Protocol Last Admin: 01/10/17 08:25 Dose: 2 puff Multivitamins/Minerals (Preservision Areds 2) 1 cap PO BID [facility] Last Admin: 01/10/17 07:24 Dose: 1 cap Pto:Nf Med- Vitafusion Multivites-Gummy 2 dose PO DAILY [facility] Last Admin: 01/10/17 07:24 Dose: 2 dose Ondansetron HCl (Zofran Inj*) 4 mg IV Q6H PRN PRN Reason: NAUSEA Rivaroxaban (Xarelto (*)) 20 mg PO DAILY [facility] Last Admin: 01/10/17 07:24 Dose: 20 mg Tiotropium [place] (Spiriva Cap.Inh*) 1 cap INH DAILY [facility] Last Admin: 01/10/17 08:25 Dose: 1 cap Vital Signs 01/09/17 01/09/17 01/09/17 15:41 18:48 19:46 Temperature 98.5 F 98.8 F Pulse Rate 88 97 Respiratory 24 20 20 Rate Blood Pressure 107/49 114/56 (mmHg) O2 Sat by Pulse 92 92 Oximetry 01/09/17 01/09/17 01/09/17 20:00 20:48 23:56 Temperature 98.6 F Pulse Rate 89 Respiratory 20 20 16 Rate Blood Pressure 119/61 (mmHg) O2 Sat by Pulse 91 93 Oximetry 01/10/17 01/10/17 01/10/17 00:00 03:17 03:43 Temperature 98.4 F Pulse Rate 91 Respiratory 16 16 Rate Blood Pressure 135/45 (mmHg) O2 Sat by Pulse 93 93 Oximetry 01/10/17 01/10/17 01/10/17 05:43 07:17 08:00 Temperature 98.7 F Pulse Rate 91 Respiratory 15 20 18 Rate Blood Pressure 121/49 (mmHg) O2 Sat by Pulse 91 Oximetry 01/10/17 01/10/17 01/10/17 08:28 10:12 11:49 Temperature 98.3 F Pulse Rate 90 86 Respiratory 18 16 16 Rate Blood Pressure 114/58 (mmHg) O2 Sat by Pulse 90 92 Oximetry 01/10/17 12:12 Temperature Pulse Rate Respiratory 16 Rate Blood Pressure (mmHg) O2 Sat by Pulse Oximetry Oxygen Devices in Use Now: Nasal Cannula Appearance: Elderly woman lying in bed in NAD Ears/Nose/Mouth/Throat: NL Teeth, Lips, Gums Neck: No Thyroid Enlargement, Masses Respiratory: Clear to Auscultation Cardiovascular: - - S1S2 idalmis Abdominal: NL Sounds; No Tenderness; No Distention, No Hepatosplenomegaly Lymphatic: No Cervical Adenopathy Extremities: No Clubbing, Cyanosis Skin: No Rash or Ulcers Neurological: Alert and Oriented x 3 Result Diagrams: 01/09/17 04:39 01/09/17 04:39 Additional Lab and Data: Lab Results 01/08/17 01/08/17 01/08/17 Range/Units 08:30 08:30 08:30 WBC 13.2 H (3.5-10.8) 10^3/ul RBC 4.89 (4.0-5.4) 10^6/ul Hgb 14.0 (12.0-16.0) g/dl Hct 43 (35-47) % MCV 88 (80-97) fL MCH 29 (27-31) pg MCHC 33 (31-36) g/dl RDW 15 (10.5-15) % Plt Count 218 (150-450) 10^3/ul MPV 8 (7.4-10.4) um3 Neut % (Auto) 84.5 H (38-83) % Lymph % (Auto) 7.3 L (25-47) % [place] % (Auto) 6.9 (1-9) % Eos % (Auto) 0.9 (0-6) % Baso % (Auto) 0.4 (0-2) % Absolute Neuts (auto) 11.1 H (1.5-7.7) 10^3/ul Absolute Lymphs (auto) 1.0 (1.0-4.8) 10^3/ul Absolute Monos (auto) 0.9 H (0-0.8) 10^3/ul Absolute Eos (auto) 0.1 (0-0.6) 10^3/ul Absolute Basos (auto) 0.1 (0-0.2) 10^3/ul Absolute Nucleated RBC 0 10^3/ul Nucleated RBC % 0 INR (Anticoag Therapy) (0.89-1.11) Sodium 141 (133-145) mmol/L Potassium 3.9 (3.5-5.0) mmol/L Chloride 107 (101-111) mmol/L Carbon Dioxide 29 (22-32) mmol/L Anion Gap 5 (2-11) mmol/L BUN 12 (6-24) mg/dL Creatinine 0.79 (0.51-0.95) mg/dL Est GFR ( Amer) 90.1 (>60) Est GFR (Non-Af Amer) 70.0 (>60) BUN/Creatinine Ratio 15.2 (8-20) Glucose 118 H (70-100) mg/dL Lactic Acid 1.9 (0.5-2.0) mmol/L Calcium 9.6 (8.6-10.3) mg/dL Magnesium 1.9 (1.9-2.7) mg/dL Total Bilirubin 0.80 (0.2-1.0) mg/dL AST 19 (13-39) U/L ALT 11 (7-52) U/L Alkaline Phosphatase 75 (34-104) U/L Troponin I 0.01 (<0.04) ng/mL Total Protein 6.7 (6.4-8.9) g/dL Albumin 3.7 (3.2-5.2) g/dL Globulin 3.0 (2-4) g/dL Albumin/Globulin Ratio 1.2 (1-3) TSH 6.83 H (0.34-5.60) mcIU/mL Urine Color Urine Appearance Urine pH (5-9) Ur Specific [place] (1.010-1.030) Urine Protein (Negative) Urine Ketones (Negative) Urine Blood (Negative) Urine Nitrate (Negative) Urine Bilirubin (Negative) Urine Urobilinogen (Negative) Ur Leukocyte Esterase (Negative) Urine WBC (Auto) (Absent) Urine RBC (Auto) (Absent) Urine Bacteria (Absent) Urine Glucose (Negative) Urine Ascorbic Acid (Negative) 01/08/17 01/08/17 Range/Units 08:30 09:05 WBC (3.5-10.8) 10^3/ul RBC (4.0-5.4) 10^6/ul Hgb (12.0-16.0) g/dl Hct (35-47) % MCV (80-97) fL MCH (27-31) pg MCHC (31-36) g/dl RDW (10.5-15) % Plt Count (150-450) 10^3/ul MPV (7.4-10.4) um3 Neut % (Auto) (38-83) % Lymph % (Auto) (25-47) % [place] % (Auto) (1-9) % Eos % (Auto) (0-6) % Baso % (Auto) (0-2) % Absolute Neuts (auto) (1.5-7.7) 10^3/ul Absolute Lymphs (auto) (1.0-4.8) 10^3/ul Absolute Monos (auto) (0-0.8) 10^3/ul Absolute Eos (auto) (0-0.6) 10^3/ul Absolute Basos (auto) (0-0.2) 10^3/ul Absolute Nucleated RBC 10^3/ul Nucleated RBC % INR (Anticoag Therapy) 1.25 H (0.89-1.11) Sodium (133-145) mmol/L Potassium (3.5-5.0) mmol/L Chloride (101-111) mmol/L Carbon Dioxide (22-32) mmol/L Anion Gap (2-11) mmol/L BUN (6-24) mg/dL Creatinine (0.51-0.95) mg/dL Est GFR ( Amer) (>60) Est GFR (Non-Af Amer) (>60) BUN/Creatinine Ratio (8-20) Glucose (70-100) mg/dL Lactic Acid (0.5-2.0) mmol/L Calcium (8.6-10.3) mg/dL Magnesium (1.9-2.7) mg/dL Total Bilirubin (0.2-1.0) mg/dL AST (13-39) U/L ALT (7-52) U/L Alkaline Phosphatase (34-104) U/L Troponin I (<0.04) ng/mL Total Protein (6.4-8.9) g/dL Albumin (3.2-5.2) g/dL Globulin (2-4) g/dL Albumin/Globulin Ratio (1-3) TSH (0.34-5.60) mcIU/mL Urine Color Yellow Urine Appearance Clear Urine pH 5.0 (5-9) Ur Specific [place] 1.009 L (1.010-1.030) Urine Protein Negative (Negative) Urine Ketones Negative (Negative) Urine Blood 3+ H (Negative) Urine Nitrate Negative (Negative) Urine Bilirubin Negative (Negative) Urine Urobilinogen Negative (Negative) Ur Leukocyte Esterase Negative (Negative) Urine WBC (Auto) Trace(0-5/hpf) (Absent) Urine RBC (Auto) 3+(>10/hpf) H (Absent) Urine Bacteria Absent (Absent) Urine Glucose Negative (Negative) Urine Ascorbic Acid * H (Negative) Assess/Plan/Problems-Billing Assessment: 81 year old woman who fell yesterday and is unsure if she passed out but did have a pelvic fracture. - Patient Problems (1) Pelvic fracture Current Visit: Yes Status: Acute Code(s): S32.9XXA - FRACTURE OF UNSP PARTS OF LUMBOSACRAL SPINE AND PELVIS, INIT SNOMED Code(s): 67838344 Comment: Appreciate PT input. Continue PT. To STR on Thursday (2) Syncope Current Visit: Yes Status: Acute Code(s): R55 - SYNCOPE AND COLLAPSE SNOMED Code(s): 989619006 Comment: TTE not helpful. CT scan neg.. Interrogation of PM wnl. (3) Pulmonary embolism Current Visit: Yes Status: Acute Code(s): I26.99 - OTHER PULMONARY EMBOLISM WITHOUT ACUTE COR PULMONALE SNOMED Code(s): 30125460 Comment: Continue xarelto. Stable. (4) COPD (chronic obstructive pulmonary disease) Current Visit: Yes Status: Acute Code(s): J44.9 - CHRONIC OBSTRUCTIVE PULMONARY DISEASE, UNSPECIFIED SNOMED Code(s): 77958000 Comment: Stable. Continue inhalers. (5) DNR (do not resuscitate) Current Visit: Yes Status: Acute
[2017-01-10] MEDS: Cetirizine* 10 MG TAB PO SCH (21:31)
[2017-01-11] MEDS: HYDROcodone/ACETAMIN 5-325 MG* 1 TAB PO PRN ×3 (03:54→19:39)
[2017-01-11] MEDS: Mometasone/Formoter 200/5 MDI INH SCH (08:23)
[2017-01-11] MEDS: Tiotropium CAP.INH* CAP.INH/18 MCG INH SCH (08:24)
[2017-01-11] MEDS: Rivaroxaban TAB(*) 20 MG TAB PO SCH (09:03)
[2017-01-11] MEDS: [UNRECOGNIZED DRUG - OTHER] PO SCH (09:04)
[2017-01-11] MEDS: PTO:Multivitamins/Minerals AREDS2 cap PO SCH ×2 (09:04→21:15)
[2017-01-11] MEDS: MULTIVITAMIN PO SCH (09:04)
[2017-01-11] MEDS: Mometasone 220 MCG MDI INH SCH ×2 (20:27→20:29)
[2017-01-11] MEDS: Cetirizine* 10 MG TAB PO SCH (21:15)
[2017-01-12] MEDS: HYDROcodone/ACETAMIN 5-325 MG* 1 TAB PO PRN ×3 (03:14→12:57)
--- NOTE | 2017-01-12 05:46 | DS ---
CC: Dr. Staci Bruce * DISCHARGE SUMMARY: DATE OF ADMISSION: 01/08/17 DATE OF DISCHARGE: 01/12/17 PRIMARY CARE PHYSICIAN: Dr. Staci Bruce. ADMISSION DIAGNOSES: 1. Pubic rami fracture. 2. Syncope. SECONDARY DIAGNOSES: 1. History of pulmonary embolism and deep venous thrombosis. 2. Chronic obstructive pulmonary disease. DISCHARGE DIAGNOSES: 1. History of pulmonary embolism and deep venous thrombosis. 2. Chronic obstructive pulmonary disease. HOSPITAL COURSE: The patient is an 81-year-old woman, who presented to the [facility] with a chief complaint of fall. The patient was found to have a pubic rami fracture and being in considerable pain. The patient was seen in consult by Physical Therapy. The patient did have a workup for syncope , which included brain CT and echo-cardiogram. No etiology of her syncopal episode could be found, most likely vasovagal. The patient was uncomfortable going home alone as she felt she was too unstable. It was agreed that she would benefit from physical therapy. The patient will be transferred to long term facility for short- term rehab on 01/12/17. PHYSICAL EXAMINATION: On the date of discharge, temperature 98.6 degrees, heart rate of 103 beats per minute, respiratory rate 16 breaths per minute, pulse ox 91%, blood pressure 140/49. HEENT: Normocephalic, atraumatic. Pupils equal, round, and reactive to light. Moist mucous membranes. Neck: Supple. No JVD, bruits, palpable thyroid, or lymphadenopathy. Chest: Clear to auscultation and percussion bilaterally. Cardiovascular Exam: S1 and S2 appreciated. Abdominal Exam: Positive bowel sounds in all 4 quadrants. Soft, nontender, and nondistended. Extremities: No cyanosis, clubbing, or edema. +2 peripheral pulses bilaterally. Neuro: Alert and oriented x3. She moves all extremities. Skin: No distinct rashes. No abnormalities. STUDIES DONE WHILE IN THE HOSPITAL: Hip/pelvic x-ray, impression: Right superior and inferior pubic rami fractures, no radiographic evidence of right hip fracture. Brain CT, 01/08/17, impression: Moderate cortical atrophy, no acute findings. Chest x-ray, 01/08/17, impression: Mild chronic right middle lobe findings, no acute changes. Transthoracic echocardiogram, 01/08/17, impression: Study is technically limited due to poor acoustic windows completed by 5 p.m. The study is limited also due to the patient's history of COPD. Extremely limited study for accurate analysis. The left ventricular chamber size is decreased, mild concentric left ventricular hypertrophy is observed, left ventricle appears hyperdynamic, possible LV outflow gradient mild and unable to assess due to poor imaging. No accurate comments on valve obstruction could be made due to suboptimal images. No reports of prior studies are available for comparison. DISCHARGE MEDICATIONS: 1. Fluticasone 2 puffs inhaled twice daily. 2. Cholecalciferol 2000 units weekly. 3. Multivitamin 1 tablet daily. 4. Calcium carbonate and vitamin D 600 plus D 1 tablet in the morning. 5. Xarelto 20 mg daily. 6. Symbicort 2 puffs inhaled daily. 7. Clarinex 5 mg daily. 8. Spiriva 1 capsule inhaled daily. 9. Alendronate 70 mg weekly. 10. Albuterol sulfate 2 puffs inhaled 4 times a day. New medications will include hydrocodone/acetaminophen 5/325 every 4 hours as needed for pain as well as Zofran ODT 4 mg every 6 hours as needed for nausea. DISCHARGE PLAN: The patient will be discharged to long term facility on 01/12/17 until the patient is stabilized. The patient will return to the hospital if symptoms worsen or recur. TIME SPENT: Over 40 minutes was spent on this discharge, more than 25 minutes was spent in direct [id number] contact with the patient in evaluation, physical exam, counseling, and coordination of care. [id number]/[facility] #: [id number] JORGE
[2017-01-12] MEDS: Mometasone/Formoter 200/5 MDI INH SCH (08:38)
[2017-01-12] MEDS: Tiotropium CAP.INH* CAP.INH/18 MCG INH SCH (08:38)
[2017-01-12] MEDS: Mometasone 220 MCG MDI INH SCH ×2 (08:39→21:17)
[2017-01-12] MEDS: Rivaroxaban TAB(*) 20 MG TAB PO SCH (09:27)
[2017-01-12] MEDS: PTO:Multivitamins/Minerals AREDS2 cap PO SCH ×2 (09:28→20:34)
[2017-01-12] MEDS: [UNRECOGNIZED DRUG - OTHER] PO SCH (09:28)
[2017-01-12] MEDS: MULTIVITAMIN PO SCH (09:28)
[2017-01-12 11:42] LABS: Hematocrit 28 % (35-47); Hemoglobin 9.1 g/dl (12.0-16.0)
[2017-01-12] MEDS: Senna TAB PO PRN ×2 (12:25→20:32)
[2017-01-12] MEDS: Docusate CAP* 100 MG PO PRN (12:26)
[2017-01-12] MEDS: Polyethylene Glycol 3350* 17 GM PACKET PO PRN (12:26)
[2017-01-12] MEDS ORDERED: diPHENhydraMINE IV* 50 MG/ML 1 ml VIAL (BENADRYL) IM SCH (13:00)
[2017-01-12] MEDS ORDERED: predniSONE TAB* 50 MG PO SCH (13:00)
[2017-01-12] MEDS ORDERED: diPHENhydraMINE IV* 50 MG/ML 1 ml VIAL (BENADRYL) IM ONE (13:00)
[2017-01-12] MEDS ORDERED: predniSONE TAB* 50 MG PO ONE ×2 (13:00→19:00)
--- NOTE | 2017-01-12 17:27 | PN ---
Subjective Date of Service: 01/12/17 Interval History: Patient complaining of new flank pain and firmness in her abdomen. Objective Active Medications: Acetaminophen (Tylenol Tab*) 650 mg PO Q4H PRN PRN Reason: FEVER/PAIN Hydrocodone Bitart/Acetaminophen ([place] 5-325 Tab*) 1 tab PO Q4H PRN PRN Reason: PAIN Last Admin: 01/12/17 12:57 Dose: 1 tab Albuterol (Ventolin 2.5 Mg/3 Ml Neb.Zeina*) 2.5 mg INH Q2H PRN PRN Reason: SOB/WHEEZING Last Admin: 01/12/17 10:12 Dose: 2.5 mg Cetirizine HCl (Zyrtec*) 10 mg PO BEDTIME EFRAIN PRN Reason: Protocol Last Admin: 01/11/17 21:15 Dose: 10 mg Diphenhydramine HCl (Benadryl Iv*) 50 mg IM 0100 ONE Stop: 01/13/17 01:01 Docusate Sodium (Colace Cap*) 100 mg PO BID PRN PRN Reason: CONSTIPATION Last Admin: 01/12/17 12:26 Dose: 100 mg Mometasone Furoate (Asmanex 220 Mcg Mdi *) 2 puff INH BID EFRAIN Last Admin: 01/12/17 08:39 Dose: 2 puff Mometasone Furoate/Formoterol Fumar (Dulera 200/5 Mdi*) 2 puff INH DAILY EFRAIN PRN Reason: Protocol Last Admin: 01/12/17 08:38 Dose: 2 puff Multivitamins/Minerals (Preservision Areds 2) 1 cap PO BID [facility] Last Admin: 01/12/17 09:28 Dose: 1 cap Pto:Nf Med- Vitafusion Multivites-Gummy 2 dose PO DAILY [facility] Last Admin: 01/12/17 09:28 Dose: 2 dose Ondansetron HCl (Zofran Inj*) 4 mg IV Q6H PRN PRN Reason: NAUSEA Polyethylene Glycol/Electrolytes (Miralax*) 17 gm PO DAILY PRN PRN Reason: CONSTIPATION Last Admin: 01/12/17 12:26 Dose: 17 gm Prednisone (Deltasone Tab*) 50 mg PO 1900 ONE Stop: 01/12/17 19:01 Prednisone (Deltasone Tab*) 50 mg PO 0100 ONE Stop: 01/13/17 01:01 Senna (Senokot Tab*) 2 tab PO BEDTIME PRN PRN Reason: CONSTIPATION Tiotropium [place] (Spiriva Cap.Inh*) 1 cap INH DAILY EFRAIN Last Admin: 01/12/17 08:38 Dose: 1 cap Vital Signs 01/11/17 01/11/17 01/11/17 19:39 20:00 20:35 Temperature Pulse Rate 111 Respiratory 24 18 20 Rate Blood Pressure (mmHg) O2 Sat by Pulse 92 Oximetry 01/11/17 01/11/17 01/12/17 20:36 21:39 00:00 Temperature Pulse Rate Respiratory 19 Rate Blood Pressure (mmHg) O2 Sat by Pulse 88 97 Oximetry 01/12/17 01/12/17 01/12/17 00:41 03:14 04:21 Temperature 98.8 F 98.7 F Pulse Rate 95 93 Respiratory 16 22 16 Rate Blood Pressure 123/58 117/55 (mmHg) O2 Sat by Pulse 97 95 Oximetry 01/12/17 01/12/17 01/12/17 05:14 07:39 08:00 Temperature 99.4 F Pulse Rate 94 Respiratory 17 18 20 Rate Blood Pressure 123/55 (mmHg) O2 Sat by Pulse 94 Oximetry 01/12/17 01/12/17 01/12/17 08:45 09:26 09:59 Temperature 98.2 F Pulse Rate 101 103 Respiratory 18 20 20 Rate Blood Pressure 138/49 (mmHg) O2 Sat by Pulse 92 94 Oximetry 01/12/17 01/12/17 01/12/17 10:14 11:26 12:53 Temperature 99.4 F Pulse Rate 99 94 Respiratory 16 12 18 Rate Blood Pressure 123/55 (mmHg) O2 Sat by Pulse 92 94 Oximetry 01/12/17 01/12/17 01/12/17 12:57 14:27 15:14 Temperature 98.4 F 98.5 F Pulse Rate 93 92 Respiratory 12 22 Rate Blood Pressure 130/51 112/51 (mmHg) O2 Sat by Pulse 94 95 Oximetry Oxygen Devices in Use Now: Nasal Cannula Appearance: Elderly woman lying in bed in NAD Eyes: No Scleral Icterus Ears/Nose/Mouth/Throat: Mucous Membranes Moist Neck: No Thyroid Enlargement, Masses Respiratory: Clear to Auscultation Cardiovascular: - - S1S2 idalmis Abdominal: - - Tenderness in right flank with mild induration. No rebound guarding or rigidity Lymphatic: No Cervical Adenopathy Extremities: No Clubbing, Cyanosis Skin: No Rash or Ulcers Neurological: Alert and Oriented x 3 Result Diagrams: 01/12/17 11:23 01/09/17 04:39 Additional Lab and Data: Lab Results 01/08/17 01/08/17 01/08/17 Range/Units 08:30 08:30 08:30 WBC 13.2 H (3.5-10.8) 10^3/ul RBC 4.89 (4.0-5.4) 10^6/ul Hgb 14.0 (12.0-16.0) g/dl Hct 43 (35-47) % MCV 88 (80-97) fL MCH 29 (27-31) pg MCHC 33 (31-36) g/dl RDW 15 (10.5-15) % Plt Count 218 (150-450) 10^3/ul MPV 8 (7.4-10.4) um3 Neut % (Auto) 84.5 H (38-83) % Lymph % (Auto) 7.3 L (25-47) % [place] % (Auto) 6.9 (1-9) % Eos % (Auto) 0.9 (0-6) % Baso % (Auto) 0.4 (0-2) % Absolute Neuts (auto) 11.1 H (1.5-7.7) 10^3/ul Absolute Lymphs (auto) 1.0 (1.0-4.8) 10^3/ul Absolute Monos (auto) 0.9 H (0-0.8) 10^3/ul Absolute Eos (auto) 0.1 (0-0.6) 10^3/ul Absolute Basos (auto) 0.1 (0-0.2) 10^3/ul Absolute Nucleated RBC 0 10^3/ul Nucleated RBC % 0 INR (Anticoag Therapy) (0.89-1.11) Sodium 141 (133-145) mmol/L Potassium 3.9 (3.5-5.0) mmol/L Chloride 107 (101-111) mmol/L Carbon Dioxide 29 (22-32) mmol/L Anion Gap 5 (2-11) mmol/L BUN 12 (6-24) mg/dL Creatinine 0.79 (0.51-0.95) mg/dL Est GFR ( Amer) 90.1 (>60) Est GFR (Non-Af Amer) 70.0 (>60) BUN/Creatinine Ratio 15.2 (8-20) Glucose 118 H (70-100) mg/dL Lactic Acid 1.9 (0.5-2.0) mmol/L Calcium 9.6 (8.6-10.3) mg/dL Magnesium 1.9 (1.9-2.7) mg/dL Total Bilirubin 0.80 (0.2-1.0) mg/dL AST 19 (13-39) U/L ALT 11 (7-52) U/L Alkaline Phosphatase 75 (34-104) U/L Troponin I 0.01 (<0.04) ng/mL Total Protein 6.7 (6.4-8.9) g/dL Albumin 3.7 (3.2-5.2) g/dL Globulin 3.0 (2-4) g/dL Albumin/Globulin Ratio 1.2 (1-3) TSH 6.83 H (0.34-5.60) mcIU/mL Urine Color Urine Appearance Urine pH (5-9) Ur Specific [place] (1.010-1.030) Urine Protein (Negative) Urine Ketones (Negative) Urine Blood (Negative) Urine Nitrate (Negative) Urine Bilirubin (Negative) Urine Urobilinogen (Negative) Ur Leukocyte Esterase (Negative) Urine WBC (Auto) (Absent) Urine RBC (Auto) (Absent) Urine Bacteria (Absent) Urine Glucose (Negative) Urine Ascorbic Acid (Negative) 01/08/17 01/08/17 Range/Units 08:30 09:05 WBC (3.5-10.8) 10^3/ul RBC (4.0-5.4) 10^6/ul Hgb (12.0-16.0) g/dl Hct (35-47) % MCV (80-97) fL MCH (27-31) pg MCHC (31-36) g/dl RDW (10.5-15) % Plt Count (150-450) 10^3/ul MPV (7.4-10.4) um3 Neut % (Auto) (38-83) % Lymph % (Auto) (25-47) % [place] % (Auto) (1-9) % Eos % (Auto) (0-6) % Baso % (Auto) (0-2) % Absolute Neuts (auto) (1.5-7.7) 10^3/ul Absolute Lymphs (auto) (1.0-4.8) 10^3/ul Absolute Monos (auto) (0-0.8) 10^3/ul Absolute Eos (auto) (0-0.6) 10^3/ul Absolute Basos (auto) (0-0.2) 10^3/ul Absolute Nucleated RBC 10^3/ul Nucleated RBC % INR (Anticoag Therapy) 1.25 H (0.89-1.11) Sodium (133-145) mmol/L Potassium (3.5-5.0) mmol/L Chloride (101-111) mmol/L Carbon Dioxide (22-32) mmol/L Anion Gap (2-11) mmol/L BUN (6-24) mg/dL Creatinine (0.51-0.95) mg/dL Est GFR ( Amer) (>60) Est GFR (Non-Af Amer) (>60) BUN/Creatinine Ratio (8-20) Glucose (70-100) mg/dL Lactic Acid (0.5-2.0) mmol/L Calcium (8.6-10.3) mg/dL Magnesium (1.9-2.7) mg/dL Total Bilirubin (0.2-1.0) mg/dL AST (13-39) U/L ALT (7-52) U/L Alkaline Phosphatase (34-104) U/L Troponin I (<0.04) ng/mL Total Protein (6.4-8.9) g/dL Albumin (3.2-5.2) g/dL Globulin (2-4) g/dL Albumin/Globulin Ratio (1-3) TSH (0.34-5.60) mcIU/mL Urine Color Yellow Urine Appearance Clear Urine pH 5.0 (5-9) Ur Specific [place] 1.009 L (1.010-1.030) Urine Protein Negative (Negative) Urine Ketones Negative (Negative) Urine Blood 3+ H (Negative) Urine Nitrate Negative (Negative) Urine Bilirubin Negative (Negative) Urine Urobilinogen Negative (Negative) Ur Leukocyte Esterase Negative (Negative) Urine WBC (Auto) Trace(0-5/hpf) (Absent) Urine RBC (Auto) 3+(>10/hpf) H (Absent) Urine Bacteria Absent (Absent) Urine Glucose Negative (Negative) Urine Ascorbic Acid * H (Negative) Assess/Plan/Problems-Billing Assessment: 81 year old woman who fell yesterday and is unsure if she passed out but did have a pelvic fracture. - Patient Problems (1) Abdominal pain Current Visit: Yes Status: Acute Code(s): R10.9 - UNSPECIFIED ABDOMINAL PAIN SNOMED Code(s): 42906225 Comment: I am concerned for a retroperitoneal hematoma. She is more anemic on xarelto and she has pain and firmness in her abdomen. She has a shellfish allergy. I have premedicated her and placed an order for a CT of her abdomen and pelvis. Hold xarelto. (2) Anemia Current Visit: Yes Status: Acute Code(s): D64.9 - ANEMIA, UNSPECIFIED SNOMED Code(s): 233882158 Comment: See above. Hold xarelto and check H/H q 8h. (3) Pelvic fracture Current Visit: Yes Status: Acute Code(s): S32.9XXA - FRACTURE OF UNSP PARTS OF LUMBOSACRAL SPINE AND PELVIS, INIT SNOMED Code(s): 78643502 Comment: Appreciate PT input. Continue PT. To [place] swing after workup for possible hematoma (4) Syncope Current Visit: Yes Status: Acute Code(s): R55 - SYNCOPE AND COLLAPSE SNOMED Code(s): 703861465 Comment: TTE not helpful. CT scan neg.. Interrogation of PM wnl. (5) Pulmonary embolism Current Visit: Yes Status: Acute Code(s): I26.99 - OTHER PULMONARY EMBOLISM WITHOUT ACUTE COR PULMONALE SNOMED Code(s): 97545907 Comment: Hold xarelto. Stable. SCDs (6) COPD (chronic obstructive pulmonary disease) Current Visit: Yes Status: Acute Code(s): J44.9 - CHRONIC OBSTRUCTIVE PULMONARY DISEASE, UNSPECIFIED SNOMED Code(s): 45056026 Comment: Stable. Continue inhalers. (7) DNR (do not resuscitate) Current Visit: Yes Status: Acute
[2017-01-12] MEDS: Cetirizine* 10 MG TAB PO SCH (20:31)
[2017-01-12 21:27] LABS: Hematocrit 29 % (35-47); Hemoglobin 9.4 g/dl (12.0-16.0)
[2017-01-13] MEDS: HYDROcodone/ACETAMIN 5-325 MG* 1 TAB PO PRN ×4 (00:19→20:59)
[2017-01-13] MEDS ORDERED: predniSONE TAB* 50 MG PO ONE (01:00)
[2017-01-13] MEDS ORDERED: diPHENhydraMINE IV* 50 MG/ML 1 ml VIAL (BENADRYL) IM ONE (01:00)
[2017-01-13 01:22] LABS: Hematocrit 27 % (35-47); Hemoglobin 8.8 g/dl (12.0-16.0)
[2017-01-13] MEDS ORDERED: Iohexol 300* (CONTRAST) 10 ML SDV IV ONE (02:25)
[2017-01-13] MEDS: Mometasone/Formoter 200/5 MDI INH SCH (08:20)
[2017-01-13] MEDS: Mometasone 220 MCG MDI INH SCH ×2 (08:21→21:23)
[2017-01-13] MEDS: Tiotropium CAP.INH* CAP.INH/18 MCG INH SCH (08:21)
--- NOTE | 2017-01-13 08:21 | RAD ---
CLINICAL HISTORY: Check for retroperitoneal hematoma., Pelvic fracture, syncope. COMPARISON: November 14, 2012 TECHNIQUE: Multiple contiguous axial CT scans were obtained of the abdomen and pelvis after the administration of intravenous contrast. Coronal and sagittal multiplanar reformations are submitted for review. Oral contrast was not administered. Delayed images were obtained through the abdomen and pelvis. FINDINGS: LUNG BASES: There is atheromatous change. There is minimal pleural thickening with pleural parenchymal scarring of the right lung base. LIVER: There is a hepatic cyst of the right lobe. BILE DUCTS: There is no intrahepatic or extrahepatic biliary dilatation. GALLBLADDER: The gallbladder is normal, without pericholecystic inflammatory change. PANCREAS: The pancreas is normal, without mass or ductal dilatation. SPLEEN: Normal in size and appearance. UPPER GI TRACT: Evaluation of the gastrointestinal tract is limited by incomplete gastric distention. The upper GI tract is unremarkable. SMALL BOWEL AND MESENTERY: The small bowel is normal in contour, course, and caliber. There is no obstruction or dilatation. COLON: The colon is normal in contour, course, caliber. There is no pericolonic inflammatory change. ADRENALS: Normal bilaterally. 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 There is no hydronephrosis BLADDER: The bladder is displaced laterally to the left by a pelvic hematoma further described below. PELVIC ORGANS: The pelvic organs are not visualized. AORTA: There is calcific atherosclerotic disease of the abdominal aorta and its branches, without aneurysmal dilatation IVC: Unremarkable LYMPH NODES: There is no lymphadenopathy by size criteria. ABDOMINAL WALL: There is no evidence for abdominal wall hernia. BONES AND SOFT TISSUES: Again noted is a fracture of the right superior pubic ramus. There is no displaced fracture of the right inferior pubic ramus. There is a nondisplaced fracture of the right sacral ala. There is large high attenuation fluid collection consistent with hematoma in the right perivesicular space. This measures approximately 11.9 x 6.3 x 7.6 cm in size. Degenerative changes are noted of the spine OTHER: None IMPRESSION: 1. LARGE RIGHT PELVIC HEMATOMA. PRELIMINARY FINDINGS WERE REPORTED AT APPROXIMATE 4:00 AM ON JANUARY 13, 2017 2. AGAIN NOTED ARE PELVIC FRACTURES.
[2017-01-13] MEDS: Docusate CAP* 100 MG PO PRN ×2 (09:19→20:58)
[2017-01-13] MEDS: Polyethylene Glycol 3350* 17 GM PACKET PO PRN (09:20)
[2017-01-13] MEDS: [UNRECOGNIZED DRUG - OTHER] PO SCH (09:20)
[2017-01-13] MEDS: MULTIVITAMIN PO SCH (09:20)
[2017-01-13] MEDS: PTO:Multivitamins/Minerals AREDS2 cap PO SCH ×2 (09:24→20:58)
[2017-01-13 09:57] LABS: Hematocrit 30 % (35-47)
--- NOTE | 2017-01-13 16:55 | PN ---
Subjective Date of Service: 01/13/17 Interval History: Seen with daughter at bedside Feels a little "woozy" today. Describes as more disequilibrium. Feels right lower abdomen is distended Objective Active Medications: Acetaminophen (Tylenol Tab*) 650 mg PO Q4H PRN PRN Reason: FEVER/PAIN Hydrocodone Bitart/Acetaminophen ([place] 5-325 Tab*) 1 tab PO Q4H PRN PRN Reason: PAIN Last Admin: 01/13/17 13:30 Dose: 1 tab Albuterol (Ventolin 2.5 Mg/3 Ml Neb.Zeina*) 2.5 mg INH Q2H PRN PRN Reason: SOB/WHEEZING Last Admin: 01/12/17 10:12 Dose: 2.5 mg Cetirizine HCl (Zyrtec*) 10 mg PO BEDTIME EFRAIN PRN Reason: Protocol Last Admin: 01/12/17 20:31 Dose: 10 mg Docusate Sodium (Colace Cap*) 100 mg PO BID PRN PRN Reason: CONSTIPATION Last Admin: 01/13/17 09:19 Dose: 100 mg Mometasone Furoate (Asmanex 220 Mcg Mdi *) 2 puff INH BID EFRAIN Last Admin: 01/13/17 08:21 Dose: 2 puff Mometasone Furoate/Formoterol Fumar (Dulera 200/5 Mdi*) 2 puff INH DAILY EFRAIN PRN Reason: Protocol Last Admin: 01/13/17 08:20 Dose: 2 puff Multivitamins/Minerals (Preservision Areds 2) 1 cap PO BID EFRAIN Last Admin: 01/13/17 09:24 Dose: 1 cap Pto:Nf Med- Vitafusion Multivites-Gummy 2 dose PO DAILY [facility] Last Admin: 01/13/17 09:20 Dose: 2 dose Ondansetron HCl (Zofran Inj*) 4 mg IV Q6H PRN PRN Reason: NAUSEA Polyethylene Glycol/Electrolytes (Miralax*) 17 gm PO DAILY PRN PRN Reason: CONSTIPATION Last Admin: 01/13/17 09:20 Dose: 17 gm Senna (Senokot Tab*) 2 tab PO BEDTIME PRN PRN Reason: CONSTIPATION Last Admin: 01/12/17 20:32 Dose: 2 tab Tiotropium [place] (Spiriva Cap.Inh*) 1 cap INH DAILY [facility] Last Admin: 01/13/17 08:21 Dose: 1 cap Vital Signs 01/12/17 01/12/17 01/12/17 19:05 19:38 21:19 Temperature 98.4 F Pulse Rate 88 89 Respiratory 18 20 20 Rate Blood Pressure 127/60 (mmHg) O2 Sat by Pulse 94 94 Oximetry 01/12/17 01/13/17 01/13/17 21:20 00:00 00:08 Temperature 97.9 F Pulse Rate 89 Respiratory 18 Rate Blood Pressure 124/63 (mmHg) O2 Sat by Pulse 94 94 96 Oximetry 01/13/17 01/13/17 01/13/17 00:19 00:20 01:20 Temperature Pulse Rate Respiratory 18 18 18 Rate Blood Pressure (mmHg) O2 Sat by Pulse Oximetry 01/13/17 01/13/17 01/13/17 02:19 04:23 07:44 Temperature 97.4 F 97.8 F Pulse Rate 75 88 Respiratory 18 18 16 Rate Blood Pressure 113/56 129/57 (mmHg) O2 Sat by Pulse 96 93 Oximetry 01/13/17 01/13/17 01/13/17 08:00 08:25 09:20 Temperature Pulse Rate 95 Respiratory 16 17 16 Rate Blood Pressure (mmHg) O2 Sat by Pulse 88 Oximetry 01/13/17 01/13/17 01/13/17 11:20 13:30 15:17 Temperature 97.5 F Pulse Rate 86 Respiratory 16 16 20 Rate Blood Pressure 124/59 (mmHg) O2 Sat by Pulse 97 Oximetry Oxygen Devices in Use Now: Nasal Cannula Appearance: sitting in chair, pleasant, NAD Eyes: No Scleral Icterus, PERRLA Ears/Nose/Mouth/Throat: Clear Oropharnyx, Mucous Membranes Moist Neck: NL Appearance and Movements; NL JVP, Trachea Midline Respiratory: Symmetrical Chest Expansion and Respiratory Effort, - - faint rales in bases Cardiovascular: RRR Abdominal: NL Sounds; No Tenderness; No Distention, No Hepatosplenomegaly Extremities: No Edema - cn2-12 intact Skin: No Rash or Ulcers Neurological: Alert and Oriented x 3 Result Diagrams: 01/13/17 09:30 01/09/17 04:39 Additional Lab and Data: Lab Results 01/08/17 01/08/17 01/08/17 Range/Units 08:30 08:30 08:30 WBC 13.2 H (3.5-10.8) 10^3/ul RBC 4.89 (4.0-5.4) 10^6/ul Hgb 14.0 (12.0-16.0) g/dl Hct 43 (35-47) % MCV 88 (80-97) fL MCH 29 (27-31) pg MCHC 33 (31-36) g/dl RDW 15 (10.5-15) % Plt Count 218 (150-450) 10^3/ul MPV 8 (7.4-10.4) um3 Neut % (Auto) 84.5 H (38-83) % Lymph % (Auto) 7.3 L (25-47) % [place] % (Auto) 6.9 (1-9) % Eos % (Auto) 0.9 (0-6) % Baso % (Auto) 0.4 (0-2) % Absolute Neuts (auto) 11.1 H (1.5-7.7) 10^3/ul Absolute Lymphs (auto) 1.0 (1.0-4.8) 10^3/ul Absolute Monos (auto) 0.9 H (0-0.8) 10^3/ul Absolute Eos (auto) 0.1 (0-0.6) 10^3/ul Absolute Basos (auto) 0.1 (0-0.2) 10^3/ul Absolute Nucleated RBC 0 10^3/ul Nucleated RBC % 0 INR (Anticoag Therapy) (0.89-1.11) Sodium 141 (133-145) mmol/L Potassium 3.9 (3.5-5.0) mmol/L Chloride 107 (101-111) mmol/L Carbon Dioxide 29 (22-32) mmol/L Anion Gap 5 (2-11) mmol/L BUN 12 (6-24) mg/dL Creatinine 0.79 (0.51-0.95) mg/dL Est GFR ( Amer) 90.1 (>60) Est GFR (Non-Af Amer) 70.0 (>60) BUN/Creatinine Ratio 15.2 (8-20) Glucose 118 H (70-100) mg/dL Lactic Acid 1.9 (0.5-2.0) mmol/L Calcium 9.6 (8.6-10.3) mg/dL Magnesium 1.9 (1.9-2.7) mg/dL Total Bilirubin 0.80 (0.2-1.0) mg/dL AST 19 (13-39) U/L ALT 11 (7-52) U/L Alkaline Phosphatase 75 (34-104) U/L Troponin I 0.01 (<0.04) ng/mL Total Protein 6.7 (6.4-8.9) g/dL Albumin 3.7 (3.2-5.2) g/dL Globulin 3.0 (2-4) g/dL Albumin/Globulin Ratio 1.2 (1-3) TSH 6.83 H (0.34-5.60) mcIU/mL Urine Color Urine Appearance Urine pH (5-9) Ur Specific [place] (1.010-1.030) Urine Protein (Negative) Urine Ketones (Negative) Urine Blood (Negative) Urine Nitrate (Negative) Urine Bilirubin (Negative) Urine Urobilinogen (Negative) Ur Leukocyte Esterase (Negative) Urine WBC (Auto) (Absent) Urine RBC (Auto) (Absent) Urine Bacteria (Absent) Urine Glucose (Negative) Urine Ascorbic Acid (Negative) 01/08/17 01/08/17 Range/Units 08:30 09:05 WBC (3.5-10.8) 10^3/ul RBC (4.0-5.4) 10^6/ul Hgb (12.0-16.0) g/dl Hct (35-47) % MCV (80-97) fL MCH (27-31) pg MCHC (31-36) g/dl RDW (10.5-15) % Plt Count (150-450) 10^3/ul MPV (7.4-10.4) um3 Neut % (Auto) (38-83) % Lymph % (Auto) (25-47) % [place] % (Auto) (1-9) % Eos % (Auto) (0-6) % Baso % (Auto) (0-2) % Absolute Neuts (auto) (1.5-7.7) 10^3/ul Absolute Lymphs (auto) (1.0-4.8) 10^3/ul Absolute Monos (auto) (0-0.8) 10^3/ul Absolute Eos (auto) (0-0.6) 10^3/ul Absolute Basos (auto) (0-0.2) 10^3/ul Absolute Nucleated RBC 10^3/ul Nucleated RBC % INR (Anticoag Therapy) 1.25 H (0.89-1.11) Sodium (133-145) mmol/L Potassium (3.5-5.0) mmol/L Chloride (101-111) mmol/L Carbon Dioxide (22-32) mmol/L Anion Gap (2-11) mmol/L BUN (6-24) mg/dL Creatinine (0.51-0.95) mg/dL Est GFR ( Amer) (>60) Est GFR (Non-Af Amer) (>60) BUN/Creatinine Ratio (8-20) Glucose (70-100) mg/dL Lactic Acid (0.5-2.0) mmol/L Calcium (8.6-10.3) mg/dL Magnesium (1.9-2.7) mg/dL Total Bilirubin (0.2-1.0) mg/dL AST (13-39) U/L ALT (7-52) U/L Alkaline Phosphatase (34-104) U/L Troponin I (<0.04) ng/mL Total Protein (6.4-8.9) g/dL Albumin (3.2-5.2) g/dL Globulin (2-4) g/dL Albumin/Globulin Ratio (1-3) TSH (0.34-5.60) mcIU/mL Urine Color Yellow Urine Appearance Clear Urine pH 5.0 (5-9) Ur Specific [place] 1.009 L (1.010-1.030) Urine Protein Negative (Negative) Urine Ketones Negative (Negative) Urine Blood 3+ H (Negative) Urine Nitrate Negative (Negative) Urine Bilirubin Negative (Negative) Urine Urobilinogen Negative (Negative) Ur Leukocyte Esterase Negative (Negative) Urine WBC (Auto) Trace(0-5/hpf) (Absent) Urine RBC (Auto) 3+(>10/hpf) H (Absent) Urine Bacteria Absent (Absent) Urine Glucose Negative (Negative) Urine Ascorbic Acid * H (Negative) Assess/Plan/Problems-Billing Assessment: 81 year old woman who suffered pelvic insufficiency fracture s/p mechanical fall complicated by pelvic hematoma - Patient Problems (1) Anemia Comment: Secondary to pelvic hematoma. Appears stable now. H/H increased. Observe overnight and check H/H in morning confirmed with Dr. Shanks no additional pelvic stabalization needed in setting of hematoma (2) Chronic respiratory failure with hypoxia Comment: on home 2L oxygen (3) COPD (chronic obstructive pulmonary disease) Comment: Stable. Continue inhalers. (4) Pelvic fracture Comment: WBAT Appreciate PT input. Continue PT. To [place] swing tomorrow
[2017-01-13] MEDS: Senna TAB PO PRN (20:57)
[2017-01-13] MEDS: Cetirizine* 10 MG TAB PO SCH (20:58)
[2017-01-14 05:04] LABS: Hematocrit 30 % (35-47); Hemoglobin 9.7 g/dl (12.0-16.0); Mean Corpuscular HGB Conc 32 g/dl (31-36); Mean Corpuscular Hemoglobin 29 pg (27-31); Mean Corpuscular Volume 89 fL (80-97); Mean Platelet Volume 8 um3 (7.4-10.4); Red Blood Count 3.37 10^6/ul (4.0-5.4); Red Cell Distribution Width 14 % (10.5-15); White Blood Count 15.1 10^3/ul (3.5-10.8)
[2017-01-14 05:05] LABS: Add Diff/Slide Review? Slide Review Added; Comments Flag Yes
[2017-01-14 05:16] LABS: BUN/Creatinine Ratio 33.3 (8-20); Calcium 9.1 mg/dL (8.6-10.3); EGFR African American 110.8 (>60); EGFR Non-African American 86.2 (>60); Potassium 3.9 mmol/L (3.5-5.0)
[2017-01-14] MEDS: HYDROcodone/ACETAMIN 5-325 MG* 1 TAB PO PRN ×2 (05:44→12:57)
[2017-01-14] MEDS: Tiotropium CAP.INH* CAP.INH/18 MCG INH SCH (08:05)
[2017-01-14] MEDS: Mometasone/Formoter 200/5 MDI INH SCH (08:05)
[2017-01-14] MEDS: Mometasone 220 MCG MDI INH SCH (08:06)
--- NOTE | 2017-01-14 09:20 | RAD ---
HISTORY: Leukocytosis status post a fracture COMPARISONS: January 08, 2017 VIEWS: 2: Frontal and lateral views of the chest. FINDINGS: CARDIOMEDIASTINAL SILHOUETTE: The cardiomediastinal silhouette is normal. FABY: The faby are normal. PLEURA: The costophrenic angles are sharp. No pleural abnormalities are noted. LUNG PARENCHYMA: The lung volumes are low. There is linear atelectasis of the right midlung. ABDOMEN: The upper abdomen is clear. There is no subphrenic gas. BONES AND SOFT TISSUES: No bone or soft tissue abnormalities are noted. OTHER: None. IMPRESSION: LOW LUNG VOLUMES WITH LINEAR ATELECTASIS OF THE RIGHT MIDLUNG.
[2017-01-14] MEDS: MULTIVITAMIN PO SCH (10:17)
[2017-01-14] MEDS: PTO:Multivitamins/Minerals AREDS2 cap PO SCH (10:17)
[2017-01-14] MEDS: [UNRECOGNIZED DRUG - OTHER] PO SCH (10:17)
[2017-01-14] MEDS ORDERED: Magnesium Hydroxide LIQ* 30 ML UDC PO ONE (11:34)
--- NOTE | 2017-01-14 12:37 | DS ---
DATE OF ADMISSION: 01/08/2017. DATE OF DISCHARGE: 01/14/2017. PRIMARY CARE PHYSICIAN: Ahmet Her. PRIMARY DIAGNOSES: 1. Pelvic insufficiency fracture. 2. Pelvic hematoma. SECONDARY DIAGNOSES: 1. History of PE and DVT, occurring in the early or per patient and her daughter. 2. COPD with chronic hypoxic respiratory failure on two liters of oxygen at night. PERTINENT IMAGING PERFORMED DURING HOSPITAL STAY: CT abdomen and pelvis on : Impression: Again there is a noted fracture of the right superior pelvic ramus. There is a nondisplaced fracture of the right inferior pubic ramus. There is a nondisplaced fracture of the right sacral ala. There is a large high attenuation fluid collection consistent with hematoma on the right perivesicular space. This measures approximately 11.9 x 6.3 x 7.6 cm in size. Degenerative changes of the spine. PERTINENT LABORATORY DATA: Hemoglobin on presentation was 14, nadired at 8.8, increased to 9.7 on the day of discharge without intervention. MEDICATIONS ON DISCHARGE: 1. Cholecalciferol 50,000 units weekly. 2. Calcium with vitamin D 600/400 one tab in the morning. 3. Symbicort 160/4.5 two puffs inhaled daily. 4. Clarinex 5 mg daily. 5. Tiotropium one cap inhaled daily. 6. Alendronate 70 mg weekly. 7. Albuterol two puffs inhaled 4 times a day as needed for shortness of breath or wheeze. 8. Senna two tabs at bedtime as needed for constipation. 9. MiraLax 17 gm daily as needed. 10. [place] 5/325 one tab every 4 hours as needed for pain. 11. Docusate 100 mg twice daily as needed for constipation. HISTORY OF PRESENT ILLNESS AND HOSPITAL COURSE: This is a pleasant 81-year-old female with a past medical history as outlined in the history of present illness on the day of admission including past medical history of PE and DVT remotely, and early per conversation with the patient and her daughter, who was in her usual state of health and had a mechanical fall at home. There was some concern about syncope. She was monitored on telemetry without abnormal rhythms detected. She did suffer right-sided pelvic insufficiency fractures. She was slated to be discharged to subacute nursing at [facility] on 01/11/2017; however, was noted to be increasingly anemic. For this reason, a CT of her abdomen and pelvis was performed which indicated a large pelvic hematoma. Her hemoglobin did respond from 8.8 to 10.0 without intervention and tamponade of pelvic bleed. She remained stable for an additional 24 hours with a stable hemoglobin of 9.7, hematocrit of 30, unchanged from the day before. While she did experience some fullness in her right lower quadrant, she had no reportable pain in her abdomen. 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 I am recommending a CBC on Thursday after discharge as indicated in the discharge paperwork. If that remains stable, can consider restarting Xarelto at that time. There are no other complications of the patient's hospital stay. Please refer to the complete medical record for further details surrounding this patient's hospital stay. Additionally, chest x -ray was performed secondary to an increased leukocytosis on the day of discharge indicating atelectasis without any evidence of pneumonia on the day of discharge. AT FOLLOW-UP, PLEASE: 1. Perform CBC as indicated above on Thursday, January 19 to evaluate for stable hemoglobin and hematocrit. 2. Restart Xarelto when appropriate. Greater than 45 minutes were spent on the discharge of this patient, of which greater than half was spent pnyn-[id number] with the patient. [id number]/[facility] #: [id number] JORGE
[2017-01-14 13:15] VITALS: BP 112/53
== END 2017-01-14 13:56 | DRG 536 ==
LOC: ED 07:59 → MEDTELE 10:35 → OBSVTOIN 01-09 09:00
PROVIDERS: ADMIT Internal Medicine; ATTEND Internal Medicine
DX: S32.501A Unspecified fracture of right pubis, initial encounter for closed fracture (principal); J96.11 Chronic respiratory failure with hypoxia; Z99.81 Dependence on supplemental oxygen; J44.9 Chronic obstructive pulmonary disease, unspecified; Z86.718 Personal history of other venous thrombosis and embolism; Z66 Do not resuscitate; S30.0XXA Contusion of lower back and pelvis, initial encounter; R55 Syncope and collapse; D64.9 Anemia, unspecified; W18.30XA Fall on same level, unspecified, initial encounter; Z86.711 Personal history of pulmonary embolism; Z91.013 Allergy to seafood; Z79.01 Long term (current) use of anticoagulants
CPT/HCPCS: 36415; 70450; 71020; 74177; 80048; 80053; 81003; 81015; 83605; 83735; 84443; 84484; 85014; 85018; 85025; 85610; 93005; 93306; 94640; 94760; A9270-GY; C8929; J1170; J1200; J1885; J2405; J7512; Q9967

== ENCOUNTER 2017-02-23 19:51 | Emergency (ER) | payer MEDICARE, BC ==
[2017-02-23 21:30] LABS: Urine Bacteria Absent (Absent); Urine Bilirubin Negative (Negative); Urine Glucose Negative (Negative); Urine Nitrite Negative (Negative)
[2017-02-24] MEDS ORDERED: oxyCODONE/Acetamin 5/325 MG* TAB PO ONE (01:11)
[2017-02-24 02:13] LABS: Hematocrit 42 % (35-47); Hemoglobin 13.8 g/dl (12.0-16.0); Mean Corpuscular HGB Conc 33 g/dl (31-36); Mean Corpuscular Hemoglobin 29 pg (27-31); Mean Corpuscular Volume 88 fL (80-97); Mean Platelet Volume 8 um3 (7.4-10.4); Red Blood Count 4.78 10^6/ul (4.0-5.4); Red Cell Distribution Width 16 % (10.5-15); White Blood Count 6.7 10^3/ul (3.5-10.8)
[2017-02-24 02:22] LABS: Albumin 3.9 g/dL (3.2-5.2); BUN/Creatinine Ratio 15.1 (8-20); C Reactive Protein 5.13 mg/L (< 5.00); Calcium 9.4 mg/dL (8.6-10.3); EGFR African American 98.4 (>60); EGFR Non-African American 76.5 (>60); Globulin 3.7 g/dL (2-4); Total Bilirubin 0.8 mg/dL (0.2-1.0); Total Protein 7.6 g/dL (6.4-8.9)
[2017-02-24 02:25] LABS: Troponin I 0.02 ng/mL (<0.04)
[2017-02-24] MEDS ORDERED: NS 0.9% 1000 ML* 1,000 ML IV ONE (03:07)
[2017-02-24] MEDS ORDERED: Potassium Chlor TAB* 20 MEQ TAB.ER PO ONE (05:58)
[2017-02-24 06:23] VITALS: BP 144/62
--- NOTE | 2017-02-24 08:13 | RAD ---
INDICATION: Asthma. Weakness. COMPARISON: January 14, 2017 TECHNIQUE: An AP portable view obtained at 0503 hours is submitted. FINDINGS: Bones/Soft Tissues: There are no acute bony findings. Cardiomediastinal: The cardiomediastinal silhouette is normal. Lungs: There is mild hyperinflation. There is mild diffuse chronic interstitial change. There is mild platelike atelectasis in the lung bases. Pleura: There are no pleural effusions. Other: None IMPRESSION: HYPERINFLATION WITH MILD CHRONIC INTERSTITIAL CHANGE AND MILD BASILAR PLATELIKE ATELECTASIS.
--- NOTE | 2017-02-25 12:28 | ED ---
Edgardo Romo Benjamin, scribed for NdubmaritzaiRose MD on 02/24/17 at 0049 . Influenza-Like Illness - HPI Summary HPI Summary: 82yo female with several complaints. Pt states that she thinks she has a UTI due to symptoms of dysuria. Pt also reports dizziness this morning, left ear discomfort, and rhnirrhea. Pt has hx of right pelvic fx on 01/09/17 and has intermittent pain in her right hip. Pt with pmhx of vertigo and COPD. 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 - History of Current Complaint Chief Complaint: EDUrogenitalProblems Time Seen by Provider: 02/24/17 00:20 Hx Obtained From: Patient, Family/Food Supervisor - daughter Onset/Duration: Sudden Onset, Lasting Hours - since this morning Severity: Moderate Associated Signs & Symptoms: Nasal Congestion - Allergy/Home Medications Allergies/Adverse Reactions: Allergies Allergy/AdvReac Type Severity Reaction Status Date / Time Iodine Allergy Hives Verified 02/23/17 20:00 Loratadine [From Claritin] Allergy See Comment Verified 02/23/17 20:00 Shellfish Allergy Allergy Hives Verified 02/23/17 20:00 ENVIRONMENTAL/SEASONAL Allergy SNEEZE,WATERY Uncoded 02/23/17 20:00 HAYFEVER EYES, CONGESTION PMH/Surg Hx/FS Hx/Imm Hx Endocrine/Hematology History: Reports: Hx Anticoagulant Therapy - coumadin Denies: Hx Diabetes, Hx Thyroid Disease Cardiovascular History: Reports: Other Cardiovascular Problems/Disorders Denies: Hx Hypertension, Hx Pacemaker/ICD Respiratory History: Reports: Hx Asthma - 10-12 YEARS, Hx Chronic Obstructive Pulmonary Disease (COPD), Hx Pulmonary Embolism - 1983-IN RIGHT LUNG, Other Respiratory Problems/Disorders - PE RIGHT LUNG History: Reports: Hx Kidney Stones - RIGHT SIDE Denies: Hx Dialysis, Hx Renal Disease Sensory History: Reports: Hx Contacts or Glasses - GLASSES Denies: Hx Cataracts, Hx Hearing Aid Opthamlomology History: Reports: Hx Contacts or Glasses - GLASSES Denies: Hx Cataracts Neurological History: Reports: Other Neuro Impairments/Disorders - OCCASIONAL VERTIGO Denies: Hx Dementia, Hx Seizures Psychiatric History: Denies: Hx Panic Disorder, Hx Substance Abuse - Cancer History Hx Chemotherapy: No Hx Radiation Therapy: No - Surgical History Surgery Procedure, Year, and Place: 1965 RIGHT INGUINAL HERNIA REPAIR, [facility]. 1984 HYSTERECTOMY, [facility] [place]. 2006 BOWEL RESECTION, [facility] [place]. KIDNEY STONE REMOVAL 1 YR. TEETH REMOVED 1 YR AGO/ DENTAL IMPLANTS PUT IN Hx Anesthesia Reactions: No Infectious Disease History: No Infectious Disease History: Denies: Hx Hepatitis, Hx Human Immunodeficiency Virus (HIV), Traveled Outside the in Last 30 Days - Family History Known Family History: Negative: Hypertension, Diabetes - Social History Occupation: Retired Lives: With Family Alcohol Use: None Substance Use Type: Reports: None Smoking Status (MU): Never Smoked Tobacco Review of Systems Constitutional: Negative Eyes: Negative Positive: Ear Ache - left , Nasal Discharge Cardiovascular: Negative Respiratory: Negative Gastrointestinal: Negative Genitourinary: Negative Positive: urgency - increased Positive: Arthralgia - right hip pain, preexisting Skin: Negative Neurological: Negative Psychological: Normal All Other Systems Reviewed And Are Negative: Yes Physical Exam - Summary Physical Exam Summary: Appearance: Non-toxic well-Appearing, no pain distress, well nourished Skin: warm, skin color reflects adequate perfusion, dry, no acute skin lesions Head Exam: Normal Eye Exam: EOMI, PERRL, conjunctiva clear ENT: pharynx nml, TM nml Neck exam: Supple, nontender Respiratory Exam: CTA, breath sounds present, no rales, no rhonchi, no wheezes Cardiovascular Exam: RRR, S1, S2, No Murmur, No rub, No gallops, pulses symmetrical Abdomen Description: Nontender, Soft, no guarding, no rebound, nondistended, no organomegaly Bowel Sounds: Present Musculoskeletal: Normal, Strength/ROM Intact Neurological Exam: nml, sens/motor intact, A&Ox3, no cerebellar dysfunction Psychological Exam: affect/mood appropriate Triage Information Reviewed: Yes Vital Signs On Initial Exam: Initial Vitals Temp Pulse Resp BP Pulse Ox 98.3 F 79 16 139/53 96 02/23/17 19:56 02/23/17 19:56 02/23/17 19:56 02/23/17 19:56 02/23/17 19:56 Vital Signs Reviewed: Yes Diagnostics - Vital Signs Vital Signs Temp Pulse Resp BP Pulse Ox 02/23/17 22:55 98.4 F 81 16 131/65 94 02/23/17 19:56 98.3 F 79 16 139/53 96 - Laboratory Lab Results: Lab Results 02/23/17 Range/Units 21:15 Urine Color Yellow Urine Appearance Clear Urine pH 6.0 (5-9) Ur Specific [place] 1.005 L (1.010-1.030) Urine Protein Negative (Negative) Urine Ketones Negative (Negative) Urine Blood Negative (Negative) Urine Nitrate Negative (Negative) Urine Bilirubin Negative (Negative) Urine Urobilinogen Negative (Negative) Ur Leukocyte Esterase Trace H (Negative) Urine WBC (Auto) Trace(0-5/hpf) (Absent) Urine RBC (Auto) Trace(0-2/hpf) (Absent) Ur Squamous Epith Cells Present H (Absent) Urine Bacteria Absent (Absent) Urine Glucose Negative (Negative) Urine Ascorbic Acid * H (Negative) Result Diagrams: 02/24/17 01:55 02/24/17 01:55 Lab Statement: Any lab studies that have been ordered have been reviewed, and results considered in the medical decision making process. - Radiology CXR Xray Interpretation: No Acute Changes Radiology Interpretation Completed By: ED Physician - EKG 0148. Cardiac Rate: NL - 67bpm EKG Rhythm: Sinus Rhythm EKG Interpretation: Moderate artifacts in 2 and 3 avR, avL, and avF Flu Symptom Course/Dx - Course Course Of Treatment: Reviewed pts medication and allergy lists. Blood pressure noted. - Diagnoses Provider Diagnoses: Weakness, Dysuria Discharge - Discharge Plan Condition: Stable Disposition: HOME Patient Education Materials: Weakness (ED) Referrals: Evelina Lerner MD [Primary Care Provider] - The documentation as recorded by the Edgardo duran Benjamin accurately reflects the service I personally performed and the decisions made by Lucila lopez Afoma Frances, MD.
== END 2017-02-24 06:20 | disposition home or self-care (01) ==
LOC: ED 19:51
DX: R53.1 Weakness (principal); H92.02 Otalgia, left ear; R30.0 Dysuria
CPT/HCPCS: 36415; 71010; 80053; 81003; 81015; 82550; 82553; 83605; 83880; 84484; 85027; 86140; 87086; 93005; 99283; A9270-GY

== ENCOUNTER 2017-11-12 18:54 | Emergency (ER) | payer MEDICARE, BC ==
[2017-11-12 20:35] LABS: ABS Basophils 0.1 10^3/ul (0-0.2); ABS Eosinophils 0.1 10^3/ul (0-0.6); ABS Lymphocytes 1.4 10^3/ul (1.0-4.8); ABS Neutrophils 5.3 10^3/ul (1.5-7.7); ABS Nucleated RBC 0 10^3/ul; Eosinophil % 1.6 % (0-6); Hematocrit 44 % (35-47); Hemoglobin 14.8 g/dl (12.0-16.0); Lymphocyte % 18.2 % (25-47); Mean Corpuscular HGB Conc 33 g/dl (31-36); Mean Corpuscular Hemoglobin 30 pg (27-31); Mean Corpuscular Volume 90 fL (80-97); Mean Platelet Volume 7.7 um3 (7.4-10.4); Nucleated Red Blood Cells % 0.1; Platelet Count 223 10^3/ul (150-450); Red Blood Count 4.95 10^6/ul (4.00-5.40); Red Cell Distribution Width 15 % (10.5-15); White Blood Count 7.9 10^3/ul (3.5-10.8)
[2017-11-12 20:48] LABS: INR 1.13 (0.77-1.02)
[2017-11-12 20:53] LABS: EGFR Non-African American 48.7 (>60)
--- NOTE | 2017-11-12 20:58 | RAD ---
Indication: Right hip pain after fall. 2 views of the right hip and an AP view the pelvis. The right femoral head and neck demonstrates no definite fracture. Deformity of the right inferior and superior pubic rami is noted from prior fracture. IMPRESSION: No fracture of the right hip is definitively identified. Healed fractures right superior and inferior pubic ramus.
--- NOTE | 2017-11-12 20:59 | RAD ---
Indication: Right shoulder injury. 4 views of the right shoulder demonstrates AC joint arthritis. There is no fracture or dislocation. No other bone or joint abnormality is noted. 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
--- NOTE | 2017-11-12 21:29 | RAD ---
Indication: Dizziness and fall, head injury. CT of the brain was performed without IV contrast. Ventricular structures are midline. No midline shift is noted. Central and cortical atrophy is noted. Periventricular lucency consistent with chronic ischemic White matter change is noted. No intracranial mass or hemorrhage is noted. Mastoid air cells and paranasal sinuses are otherwise unremarkable. IMPRESSION: Chronic ischemic White matter change. There is no evidence of intracranial mass or hemorrhage.
--- NOTE | 2017-11-12 21:39 | ED ---
Saskia Romo Emily, scribed for Obi Jaimes on 11/12/17 at 1925 . Adult Trauma - HPI Summary HPI Summary: This patient is an 82 year old F presenting to [facility] accompanied by family with a chief complaint of R shoulder pain that began status post fall yesterday. The patient rates the pain 5/10 in severity. Symptoms aggravated by nothing. Symptoms alleviated by nothing. Patient reports R pelvic pain. Patient denies back pain, abd pain, and CP. - History of Current Complaint Chief Complaint: EDShoulderClavicleInj Stated Complaint: FALL Time Seen by Provider: 11/12/17 19:17 Hx Obtained From: Patient ?: No Mechanism of Injury: Fall Ambulatory at the Scene: Yes Loss of Consciousness: no loss of consciousness Onset/Duration: Started Days Ago, Traumatic, Still Present Onset of Pain: Immediate Onset Severity: Moderate Current Severity: Moderate Pain Intensity: 5 Pain Scale Used: 0-10 Numeric Location: Extremities Aggravating Factor(s): Nothing Alleviating Factor(s): Nothing - Additional Pertinent History Primary Care Physician: ABIDA - Allergy/Home Medications Allergies/Adverse Reactions: Allergies Allergy/AdvReac Type Severity Reaction Status Date / Time MS Iodine [Iodine] Allergy Hives Verified 02/23/17 20:00 MS Loratadine [From Claritin] Allergy See Comment Verified 02/23/17 20:00 MS Shellfish Allergy Allergy Hives Verified 02/23/17 20:00 [Shellfish Allergy] ENVIRONMENTAL/SEASONAL Allergy SNEEZE,WATERY Uncoded 02/23/17 20:00 HAYFEVER EYES, CONGESTION PMH/Surg Hx/FS Hx/Imm Hx Previously Healthy: No Endocrine/Hematology History: Reports: Hx Anticoagulant Therapy - coumadin Denies: Hx Diabetes, Hx Thyroid Disease Cardiovascular History: Reports: Other Cardiovascular Problems/Disorders Denies: Hx Hypertension, Hx Pacemaker/ICD Respiratory History: Reports: Hx Asthma - 10-12 YEARS, Hx Chronic Obstructive Pulmonary Disease (COPD), Hx Pulmonary Embolism - 1983-IN RIGHT LUNG, Other Respiratory Problems/Disorders - PE RIGHT LUNG History: Reports: Hx Kidney Stones - RIGHT SIDE Denies: Hx Dialysis, Hx Renal Disease Sensory History: Reports: Hx Contacts or Glasses - GLASSES Denies: Hx Cataracts, Hx Hearing Aid Opthamlomology History: Reports: Hx Contacts or Glasses - GLASSES Denies: Hx Cataracts Neurological History: Reports: Other Neuro Impairments/Disorders - OCCASIONAL VERTIGO Denies: Hx Dementia, Hx Seizures Psychiatric History: Denies: Hx Panic Disorder, Hx Substance Abuse - Cancer History Hx Chemotherapy: No Hx Radiation Therapy: No - Surgical History Surgery Procedure, Year, and Place: 1966 RIGHT INGUINAL HERNIA REPAIR, [facility]. [address], [facility] [place]. [address] B[address]EL RESECTION, [facility] [place]. KIDNEY STONE REMOVAL 1 YR. TEETH REMOVED 1 YR AGO/ DENTAL IMPLANTS PUT IN Hx Anesthesia Reactions: No Infectious Disease History: No Infectious Disease History: Denies: Hx Hepatitis, Hx Human Immunodeficiency Virus (HIV), Traveled Outside the in Last 30 Days - Family History Known Family History: Negative: Hypertension, Diabetes - Social History Occupation: Retired Lives: Alone Alcohol Use: None Hx Substance Use: No Substance Use Type: Reports: None Hx Tobacco Use: No Smoking Status (MU): Never Smoked Tobacco Review of Systems Negative: Chest Pain Negative: Abdominal Pain Positive: Other - Positive R shoulder pain and R hip pain. Negative back pain All Other Systems Reviewed And Are Negative: Yes Physical Exam - Summary Physical Exam Summary: Appearance: Well appearing, no pain distress Skin: warm, dry, reflects adequate perfusion Head/face: normal Eyes: EOMI, MICHAEL ENT: normal Neck: supple, non-tender Respiratory: CTA, breath sounds present Cardiovascular: RRR, pulses symmetrical Abdomen: non-tender, soft Bowel: present Musculoskeletal: Tenderness R should. Restriction of movement of R shoulder. No neurological deficit of R shoulder. Mild tenderness R hip. Neuro: normal, sensory motor intact, A&Ox3 Triage Information Reviewed: Yes Vital Signs On Initial Exam: Initial Vitals Temp Pulse Resp BP Pulse Ox 98.7 F 94 15 134/52 92 11/12/17 19:00 11/12/17 19:00 11/12/17 19:00 11/12/17 19:00 11/12/17 19:00 Vital Signs Reviewed: Yes Diagnostics - Vital Signs Vital Signs Temp Pulse Resp BP Pulse Ox 11/12/17 19:00 98.7 F 94 15 134/52 92 - Laboratory Lab Results: Lab Results 11/12/17 11/12/17 11/12/17 Range/Units 20:27 20:27 20:27 WBC 7.9 (3.5-10.8) 10^3/ul RBC 4.95 (4.00-5.40) 10^6/ul Hgb 14.8 (12.0-16.0) g/dl Hct 44 (35-47) % MCV 90 (80-97) fL MCH 30 (27-31) pg MCHC 33 (31-36) g/dl RDW 15 (10.5-15) % Plt Count 223 (150-450) 10^3/ul MPV 7.7 (7.4-10.4) um3 Neut % (Auto) 66.7 (38-83) % Lymph % (Auto) 18.2 L (25-47) % Prentiss % (Auto) 12.6 H (0-7) % Eos % (Auto) 1.6 (0-6) % Baso % (Auto) 0.9 (0-2) % Absolute Neuts (auto) 5.3 (1.5-7.7) 10^3/ul Absolute Lymphs (auto) 1.4 (1.0-4.8) 10^3/ul Absolute Monos (auto) 1.0 H (0-0.8) 10^3/ul Absolute Eos (auto) 0.1 (0-0.6) 10^3/ul Absolute Basos (auto) 0.1 (0-0.2) 10^3/ul Absolute Nucleated RBC 0 10^3/ul Nucleated RBC % 0.1 INR (Anticoag Therapy) 1.13 H (0.77-1.02) APTT 33.4 (26.0-36.3) seconds Sodium 140 (135-145) mmol/L Potassium 4.3 (3.5-5.0) mmol/L Chloride 106 (101-111) mmol/L Carbon Dioxide 27 (22-32) mmol/L Anion Gap 7 (2-11) mmol/L BUN 14 (6-24) mg/dL Creatinine 1.08 H (0.51-0.95) mg/dL Est GFR ( Amer) 58.9 (>60) Est GFR (Non-Af Amer) 48.7 (>60) BUN/Creatinine Ratio 13.0 (8-20) Glucose 115 H (70-100) mg/dL Calcium 9.9 (8.6-10.3) mg/dL Total Bilirubin 1.10 H (0.2-1.0) mg/dL AST 17 (13-39) U/L ALT 10 (7-52) U/L Alkaline Phosphatase 94 (34-104) U/L Total Creatine Kinase 125 (10-223) U/L Troponin I 0.00 (<0.04) ng/mL Total Protein 7.5 (6.4-8.9) g/dL Albumin 3.9 (3.2-5.2) g/dL Globulin 3.6 (2-4) g/dL Albumin/Globulin Ratio 1.1 (1-3) Result Diagrams: 11/12/17 20:27 11/12/17 20:27 Lab Statement: Any lab studies that have been ordered have been reviewed, and results considered in the medical decision making process. - Radiology Hip/Pelvis XR Radiology Interpretation Completed By: Radiologist - Hip/Pelvis XR reveals, per radiologist, No fracture of the right hip is definitively identified. Healed fractures right superior and inferior pubic ramus. ED physician has reviewed this radiology report. 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 ED physician has reviewed this radiology report. - CT Brain CT CT Interpretation Completed By: Radiologist - Brain CT reveals, per radiologist , chronic ischemic white matter change. There is no evidence of intracranial mass or hemorrhage. ED physician has reviewed this radiology report. - EKG 1999 Cardiac Rate: NL EKG Rhythm: Sinus Rhythm - 82 BPM Ectopy: None EKG Interpretation: No acute changes Re-Evaluation - Re-Evaluation First Eval Re-Evaluation Time: 21:30 Change: Unchanged Comment: Discussed results and plan of care with pt. Adult Trauma Course/Dx - Course Course Of Treatment: This patient is an 82 year old F presenting to [facility] accompanied by family with a chief complaint of R shoulder pain that began status post fall yesterday. Physical Exam Findings: Tenderness R should. Restriction of movement of R shoulder. No neurological deficit of R shoulder. Mild tenderness R hip. Hip/Pelvis XR reveals, per radiologist, No fracture of the right hip is definitively identified. Healed fractures right superior and inferior pubic ramus. 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 Blood work and UA obtained. Brain CT reveals, per radiologist , chronic ischemic white matter change. There is no evidence of intracranial mass or hemorrhage. Patient will be discharged with follow up from PCP. The patient is agreeable with this plan. - Diagnoses Differential Diagnosis/HQI/PQRI: Positive: Contusion(s), Fracture, Dislocation, Sprain Provider Diagnoses: Fall, Right shoulder pain, Right hip pain Discharge - Sign-Out/Discharge Documenting (check all that apply): Discharge/Admit/Transfer - Discharge home - Discharge Plan Condition: Stable Disposition: HOME Patient Education Materials: Shoulder Pain (ED), Hip Pain (ED) Referrals: Evelina Lerner MD [Primary Care Provider] - 3 Days Farhana Carmen MD [Medical Doctor] - 3 Days Additional Instructions: RETURN TO THE EMERGENCY DEPARTMENT FOR NEW OR WORSENING SYMPTOMS - Billing Disposition and Condition Condition: STABLE Disposition: Home The documentation as recorded by the Saskia duran Emily accurately reflects the service I personally performed and the decisions made by Theodore lopez Emmanuel.
[2017-11-12 22:08] VITALS: BP 152/89
== END 2017-11-12 22:06 | disposition home or self-care (01) ==
LOC: ED 18:54
DX: M25.511 Pain in right shoulder (principal); M25.551 Pain in right hip; Z79.01 Long term (current) use of anticoagulants; J45.909 Unspecified asthma, uncomplicated; Z87.442 Personal history of urinary calculi; W19.XXXA Unspecified fall, initial encounter; Y92.9 Unspecified place or not applicable
CPT/HCPCS: 36415; 70450; 80053; 82550; 84484; 85025; 85610; 85730; 93005; 99283

== ENCOUNTER 2019-02-15 18:31 | Emergency (ER) | payer MEDICARE, BC ==
--- OUTSIDE RECORDS SUMMARY | 2019-02-15 18:58 | XMS REPORT | Summary of Care ---
:1935 Author Organization [facility] Address [address] [facility] [place] [address] Care Team Providers Name Role Phone Evelina Lerner MD Primary Care Provider Reason for Visit Reason Comments Urinary Tract Infection family and feels that she has a possible UTI; as been showing signs of forgetfulness; denies any difficulty urrinating or fevers at this time per patient. Encounter Details Date Type Department Care Team Description 12/29/2018 Office Visit [place] Yu Galvin, Urinary tract infection without hematuria, site unspecified (Primary Dx); Practice UNDERWRITING INTERN Confusion; [address] [place] [address] [place] [address] [phone] Allergies Active Allergy Reactions Severity Noted Date Comments Moxifloxacin Hydrochloride GI Reaction 08/13/2007 Cefaclor Monohydrate Rash 08/13/2007 Claritin Rash 08/13/[address] Dye Rash 08/06/2016 Shellfish Allergy Unknown Reaction 02/09/2017 documented as of this encounter (statuses as of 12/29/2018) Medications Medication Sig Dispensed Refills Start Date End Date Status Multiple Take 1 Cap by 0 Active Vitamins-Minerals mouth TWICE (PRESERVISION AREDS 2 DAILY. PO) Calcium Take 1 Tab by 0 Active Carbonate-Vitamin D mouth DAILY. (CALTRATE 600+D PO) Cholecalciferol Take 1 Cap by 0 Active (VITAMIN D3) 97625 mouth EVERY 7 UNITS Oral Cap DAYS. furosemide (LASIX) 20 Take 1 Tab by 30 Tab 1 12/21/2017 Active MG Oral mouth DAILY TabIndications: Edema NEEDED (edema). of both ankles rivaroxaban (XARELTO) Take 1 Tab by 90 Tab 3 04/23/2018 Active 20 MG Oral mouth DAILY. TabIndications: Clotting disorder (HCC) tiotropium (SPIRIVA Take 1 INHL by 90 Cap 2 06/23/2018 Active HANDIHALER) 18 MCG inhalation DAILY. Inhalation CapIndications: Obstructive chronic bronchitis with exacerbation (HCC) alendronate (FOSAMAX) Take 1 Tab by 12 Tab 3 06/23/2018 Active 70 MG Oral mouth EVERY 7 TabIndications: DAYS. Osteoporosis, unspecified osteoporosis type, unspecified pathological fracture presence albuterol HFA Take 2 Puffs by 1 Inhaler 5 07/07/2018 Active (VENTOLIN) 108 (90 inhalation EVERY Base) MCG/ACT FOUR HOURS Inhalation Aero NEEDED (SOB). SolnIndications: Chronic bronchitis, unspecified chronic bronchitis type (HCC) amoxicillin-clavulanic Take 1 Tab by 20 Tab 0 12/29/2018 01/08/2019 Active acid (AUGMENTIN) mouth TWICE DAILY 875-125 MG Oral Tab for 10 days. documented as of this encounter (statuses as of 12/29/2018) Active Problems Problem Noted Date Bilateral lower extremity edema 12/29/2018 Uncomplicated severe persistent asthma 02/20/2016 Prediabetes 11/20/2015 Vitamin D deficiency 11/20/2015 Chronic bronchitis 11/20/2015 Oxygen dependent 11/20/2015 Overview: [facility]- Oxygen at 2 LPM q HS and PRN History of pulmonary embolism 08/13/2007 Obstructive chronic bronchitis with exacerbation 08/13/2007 Degeneration of cervical intervertebral disc 08/13/2007 Osteoarthrosis, unspecified whether generalized or localized, unspecified site Overview: HIPS Osteoporosis, unspecified 08/13/2007 Overview: SPINE Allergy, unspecified not elsewhere classified 08/13/2007 Clotting disorder Overview: on Xarelto documented as of this encounter (statuses as of 12/29/2018) Resolved Problems Problem Noted Date Resolved Date Phlebitis and thrombophlebitis of lower extremities, 12/06/2007 02/20/2016 unspecified Labyrinthitis 08/13/2007 02/20/2016 Overview: RECURRENT Unspecified sinusitis (chronic) 08/13/2007 02/20/2016 Depressive disorder, not elsewhere classified 08/13/2007 03/30/2017 Psoriasis 08/13/2007 03/30/2017 Pneumonia, organism unspecified(486) 08/13/2007 02/20/2016 SOB (shortness of breath) 08/13/2007 02/20/2016 Stress 08/13/2007 02/20/2016 Diverticulitis 08/13/2007 02/20/2016 Acute serous otitis media 08/13/2007 02/20/2016 Actinic keratosis 08/13/2007 03/30/2017 Overview: NOSE Acute upper respiratory infections of unspecified site 08/13/2007 02/20/2016 Conjunctivitis unspecified 08/13/2007 03/30/2017 Overview: ALLERGIC documented as of this encounter (statuses as of 12/29/2018) Immunizations Name Administration Dates Next Due Influenza (IM) Preservative Free 04/11/2008 Influenza Vaccine High Dose 07/07/2018, 02/09/2017, 02/20/2016 PNEUMOCOCCAL POLYSACCHARIDE VACCINE 07/07/2018 Pneumococcal Conjugate Vaccine 06/07/2015 TDAP Vaccine 11/20/2015 Vitamin B12 (1,000 mcg) 01/06/2008 documented as of this encounter Social History Tobacco Use Types Packs/Day Years Used Date Passive Smoke Exposure - Never Smoker Smokeless Tobacco: Never Used Alcohol Use Drinks/Week oz/Week Comments No Sex Assigned at Date Recorded Not on file Job Start Date Occupation Industry Not on file Not on file Not on file Travel History Travel Start Travel End No recent travel history available. documented as of this encounter Last Filed Vital Signs Vital Sign Reading Time Taken Comments Blood Pressure 132/72 12/29/2018 2:04 PM EDT Pulse 78 12/29/2018 2:04 PM EDT Temperature 36.9 12/29/2018 2:04 PM EDT C (98.5 F) Respiratory Rate - - Oxygen Saturation 92% 12/29/2018 2:04 PM EDT Inhaled Oxygen Concentration - - Weight 72.3 kg (159 lb 6.4 oz) 12/29/2018 2:04 PM EDT Height 165.1 cm (5' 5") 12/29/2018 2:04 PM EDT Body Mass Index 26.53 12/29/2018 2:04 PM EDT documented in this encounter Patient Instructions Patient InstructionsNowalk, Yu, UNDERWRITING INTERN - 12/29/2018 2:00 PM EDABDULKADIRou had a urine test today which showed a urinary tract infection. You chest xray was normal. I have sent in a prescription for Augmentin - please take this twice daily for ten day. You may want to also take a probiotic with this as it can cause some GI upset. Please take your lasix daily for one week for the swelling in your legs. Please make an appointment to see Dr. Angel. If symptoms worsen or any other concerning symptoms - weakness on one side of your body, facial droop, slurred speech - please go immediately to the ER. Keep your yearly appointment with Dr. Lerner in June 2019. documented in this encounter Progress Notes Yu Drummond NP - 12/29/2018 2:00 PM EDT PATIENT: Mary Kendrick : 1935 DATE OF SERVICE: 12/29/2018 CHIEF COMPLAINT: Chief Complaint Patient presents with Urinary Tract Infection family and feels that she has a possible UTI; as been showing signs of forgetfulness; denies any difficulty urrinating or fevers at this time per patient. Subjective HISTORY OF PRESENT ILLNESS: Mary Kendrick is a 83-y.o. female. Patient has been getting confused and forgetful for about one month. Daughter is concerned that shemay have a UTI. Patient states she is only confused when she is very tired. She is sleeping fine but is just tired sometimes. Denies any dysuria, abdominal pain, nausea/vomiting, chest pain or SOB (she has COPD but is not having any more Sob than her baseline, she is on oxygen prn and at night). No cough. She has been noticing increased SOB during showers - has been using her albuterol before her showers. She is living at [facility] and has someone with her during her showering. The forgetfulness that the daughters are noticing is that she is not taking her spiriva every day and she tells them it is because she is forgetting to take it. When asked today the patient states that she is taking the spiriva out because she does not feel that she needs to take it any longer. Last saw Dr. Angel March 2017. Past Medical History: Diagnosis Date Actinic keratosis 08/13/2007 NOSE Acute serous otitis media 08/13/2007 Acute upper respiratory infections of unspecified site 08/13/2007 Allergy, unspecified not elsewhere classified 08/13/2007 Asthma Bowel obstruction (HCC) 2005 Dr. Aquino Chest pain hx chest pain, stress echo 2013 non-diagnostic. Clotting disorder (HCC) on Xarelto Conjunctivitis unspecified 08/13/2007 ALLERGIC Degeneration of cervical intervertebral disc 08/13/2007 Depressive disorder, not elsewhere classified 08/13/2007 Diverticulitis 08/13/2007 Diverticulitis large intestine 2005 s/p bowel resection GERD (gastroesophageal reflux disease) H/O exercise stress test 11/2013 2.3 METS, Max HR 117, 82%; NSR, PVCs, Echo had normal wall motion, EF 55%; nondiagnositic due to failur to attain goal HR. History of CT scan of abdomen 12/2016 Right ramus fracture as above, right sacral ala fracture, non displaced, right perivesicular hematoma 11.9x6.3x7.6 cm History of pelvic fracture 01/[address] scan of brain 12/2016 moderate atrophy, no acute findings Labyrinthitis 08/13/2007 Macular degeneration of left eye sees Dr. Roger in [facility], has monthly injections. Mild luminal irregularity of carotid artery on ultrasound 04/02/2017 0-49% stenosis, minimal plaque Nephrolithiasis Obstructive chronic bronchitis with exacerbation (HCC) 08/13/2007 asthma and emphysema; on chronic oxygen at hs, day prn Osteoarthrosis, unspecified whether generalized or localized, unspecified site 08/13/2007 HIPS Osteoporosis, unspecified 08/13/2007 SPINE Other pulmonary embolism and infarction 08/13/2007 Pneumonia, organism unspecified(486) 08/13/2007 Psoriasis 08/13/2007 Pulmonary embolism (HCC) 1984 with DVT SOB (shortness of breath) 08/13/2007 Stress 08/13/2007 Unspecified sinusitis (chronic) 08/13/2007 Vitamin D deficiency Family History Problem Relation Age of Onset Diabetes Mother Stroke Mother Cancer Father metastatic, smoker Heart Disease Father Diabetes Sister Heart Sister No Known Problems Daughter Diabetes Son Current Outpatient Medications Medication Sig albuterol HFA (VENTOLIN) 108 (90 Base) MCG/ACT Inhalation Aero Soln Take 2 Puffs by inhalation EVERY FOUR HOURS NEEDED (SOB). alendronate (FOSAMAX) 70 MG Oral Tab Take 1 Tab by mouth EVERY 7 DAYS. amoxicillin-clavulanic acid (AUGMENTIN) 875-125 MG Oral Tab Take 1 Tab by mouth TWICE DAILY for 10 days. Calcium Carbonate-Vitamin D (CALTRATE 600+D PO) Take 1 Tab by mouth DAILY. Cholecalciferol (VITAMIN D3) 74602 UNITS Oral Cap Take 1 Cap by mouth EVERY 7 DAYS. furosemide (LASIX) 20 MG Oral Tab Take 1 Tab by mouth DAILY NEEDED ( edema). Multiple Vitamins-Minerals (PRESERVISION AREDS 2 PO) Take 1 Cap by mouth TWICE DAILY. rivaroxaban (XARELTO) 20 MG Oral Tab Take 1 Tab by mouth DAILY. tiotropium (SPIRIVA HANDIHALER) 18 MCG Inhalation Cap Take 1 INHL by inhalation DAILY. No current facility-administered medications for this visit. Allergies Allergen Reactions Avelox [Moxifloxacin Hydrochloride] GI Reaction Ceclor Cd [Cefaclor Monohydrate] Rash Claritin Rash HOT FLASHES Contrast Dye [Ct Dye] Rash Shellfish Allergy Unknown Reaction Social History Socioeconomic History Marital status: Spouse name: Not on file Number of children: Not on file Years of education: Not on file Highest education level: Not on file Occupational History Not on file Social Needs Financial resource strain: Not on file Food insecurity: Worry: Not on file Inability: Not on file Transportation needs: Medical: Not on file Non-medical: Not on file Tobacco Use Smoking status: Passive Smoke Exposure - Never Smoker Smokeless tobacco: Never Used Substance and Sexual Activity Alcohol use: No Drug use: No Sexual activity: Never Lifestyle Physical activity: Days per week: Not on file Minutes per session: Not on file Stress: Not on file Relationships Social connections: Talks on phone: Not on file Gets together: Not on file Attends orthodoxy service: Not on file Active member of club or organization: Not on file Attends meetings of clubs or organizations: Not on file Relationship status: Not on file Intimate partner violence: Fear of current or ex partner: Not on file Emotionally abused: Not on file Physically abused: Not on file Forced sexual activity: Not on file Other Topics Concern Back Care Not Asked Bike Helmet Not Asked Blood Transfusions Not Asked Caffeine Concern Not Asked Exercise Not Asked Hobby Hazards Not Asked International Travel Not Asked Service Not Asked Occupational Exposure Not Asked Seat Belt Not Asked Self-Exams Not Asked Sleep Concern Not Asked Special Diet Not Asked Stress Concern Not Asked Weight Concern Not Asked Social History Narrative Patient is retired- previously worked at [employer] 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 , lives alone Prior records of Dr. Bruce reviewed and history update 02/20/2016 REVIEW OF SYSTEMS: Review of Systems Constitutional: Negative for chills, fever, malaise/fatigue and weight loss. HENT: Negative for congestion, sinus pain and sore throat. Eyes: Negative for pain. Respiratory: Positive for shortness of breath (no change from baseline). Negative for cough. Cardiovascular: Positive for leg swelling (chronic edema, worse in the last few days). Negative for chest pain and palpitations. Gastrointestinal: Negative for abdominal pain, constipation, diarrhea, nausea and vomiting. Genitourinary: Negative for dysuria, flank pain, frequency, hematuria and urgency. Musculoskeletal: Negative for falls and myalgias. Neurological: Negative for dizziness, sensory change, speech change, weakness and headaches. Psychiatric/Behavioral: Positive for memory loss (per daughter). Objective PHYSICAL EXAM: VITALS: BP 132/72 (BP Location: Left arm, Patient Position: Sitting) | Pulse 78 | Temp 98.5 F(36.9 C) | Ht 5' 5" (1.651 m) | Wt 159 lb 6.4 oz ( 72.3 kg) | SpO2 92% | BMI 26.53 kg/m Body mass index is 26.53 kg/m. Physical Exam Constitutional: Vital signs are normal. She appears well-developed and well- nourished. She is activeand cooperative. No distress. Eyes: Pupils are equal, round, and reactive to light. EOM are normal. Cardiovascular: Normal rate, regular rhythm, normal heart sounds, intact distal pulses and normal pulses. Pulmonary/Chest: Effort normal. No respiratory distress. She has rhonchi in the right lower field and the left lower field. Abdominal: Soft. Normal appearance. Musculoskeletal: She exhibits edema (bilat lower extremities, +2 pitting edema). Neurological: She is alert. Skin: Skin is warm and dry. Psychiatric: She has a normal mood and affect. Her behavior is normal. Nursing note and vitals reviewed. Urine dip positive for leukocytes Mental Status Examination Posture and motor behavior: negative Dress, grooming, personal hygiene: negative Facial expression: negative Speech: negative Mood: negative Coherency and relevance of thought: negative Thought content: negative Perceptions: negative Orientation: positive for does not know the year Attention and concentration: negative Memory: : positive for forgetful - forgetting her pills in her daily pill box Information: negative Vocabulary: negative Abstract reasoning: negative Judgment: negative ASSESSMENT / IMPRESSION: ICD-9-CM ICD-10-CM 1. Urinary tract infection without hematuria, site unspecified 599.0 N39.0 2. Confusion 298.9 R41.0 URINE DIP CLINITEK (AMB POCT) URINE CULTURE (C&S) XR CHEST 2 VIEW PA AND LATERAL (STANDARD) URINE CULTURE (C&S) 3. Bilateral lower extremity edema 782.3 R60.0 Plan Augmentin 875-125 BID for 10 days UA done today and culture sent Chest xray done today Follow up with Dr. Angel Take Lasix daily for one week Author: Yu Drummond NP 12/29/2018 15:07 documented in this encounter Plan of Treatment Date Type Specialty Care Team Description 04/07/2019 Office Visit Pulmonary Marcus Angel MD [address] [place] [address] [phone] Name Type Priority Associated Diagnoses Date/Time URINE CULTURE (C&S) Lab Routine Confusion 12/29/2018 2:10 PM EDT XR CHEST 2 VIEW PA AND Imaging Routine Confusion 12/29/2018 2:45 PM EDT LATERAL (STANDARD) Name Type Priority Associated Diagnoses Order Schedule URINE CULTURE (C&S) Lab Routine Confusion 1 Occurrences starting 12/29/2018 until 07/01/2019 XR CHEST 2 VIEW PA AND Imaging Routine Confusion Expected: 12/29/2018, LATERAL (STANDARD) Expires: 12/29/2019 Health Maintenance Due Date Last Done Comments MEDICARE ANNUAL WELLNESS 1935 VISIT ZOSTER IMMUNIZATION SERIES 02/21/1986 (1 of 2) FALL RISK ASSESSMENT 02/21/2001 DEPRESSION SCREENING 12/21/2018 12/21/2017 DIABETES SCREENING 12/21/2018 12/21/2017, 04/02/2017, 06/09/2016, Additional history exists INFLUENZA VACCINE (#1) 2019 07/07/2018, 02/09/2017, 02/20/2016, Additional history exists PNEUMOCOCCAL 65+YRS Completed 07/07/2018, 06/07/2015 HPV IMMUNIZATION SERIES Aged Out No longer eligible based on patient's age to complete this topic MENINGOCOCCAL VACCINE IMM Aged Out No longer eligible based on patient's age to complete this topic documented as of this encounter Goals Goal Patient Goal Associated Recent Patient-Stated? Author Type Problems Progress Depression Depression No Eduarda, screen (PHQ-9) Evelina Pablo total score < 5 Note: This is an individualized treatment (depression) goal for Mary Kendrick: Displayed above is your goal for a depression screening (PHQ-9) score that would indicate good control of your depression. Keep a regular sleep schedule Lifestyle No Evelina Lerner MD Note: This is an individualized lifestyle goal for Mary Kendrick: Please maintain a regular sleep schedule. This may help with some symptoms of depression. Keep immunizations current Lifestyle No Evelina Lerner MD Note: This is an individualized lifestyle goal for Mary Kendrick: Please be sure to keep up-to-date on recommended immunizations. For example, this would include a yearly influenza vaccine. Immunization status can be seen by looking at the Health Maintenance sections of your e[facility], Plan of Care, and any After Visit Summaries. Take all prescribed medications as Self-management No Evelina Lerner MD directed Note: This is an individualized self-management goal for Mary Kendrick: Please take all prescribed medications as directed. 1. Do not skip doses. If you cannot afford your medications, talk with your doctor. 2. Use a pill reminder system such as a pill box if needed. Your pharmacist can help you with this. 3. Contact your Pharmacy 5 days before your medication runs out. If you cannot take your medications for any reasons, talk with your doctor. 4. Please bring all of your medication bottles and inhalers (or a list of all your medications/inhalers) with you to every visit. Potential barriers to meeting all of your care plan goals will continue to be addressed on an ongoing basis. documented as of this encounter Procedures Procedure Name Priority Date/Time Associated Diagnosis Comments URINE DIP CLINITEK Routine 12/29/2018 2:10 PM Confusion Results for this (AMB POCT) EDT procedure are in the results section. documented in this encounter Results URINE DIP CLINITEK (AMB POCT) (12/29/2018 2:10 PM EDT) URINE GLUCOSE (POCT) Negative Negative mg/dl [facility] POCT URINE BILIRUBIN Negative Negative [facility] [place] (POCT) POCT Urine Ketones (POCT) Negative Negative [facility] POCT URINE SPECIFIC 1.005 1.005 - 1.030 [facility] GRAVITY (POCT) POCT URINE BLOOD (POCT) Negative Negative [facility] POCT URINE PH (POCT) 5.0 5.0 - 8.0 [facility] POCT URINE PROTEIN (POCT) Negative Negative mg/dl [facility] POCT URINE UROBILINOGEN 0.2 0.2 - 1.0 mg/dl [facility] (POCT) POCT URINE NITRITES Negative Negative [facility] (POCT) POCT URINE LEUKOCYTES Moderate (A) Negative [facility] (POCT) Cells/uL POCT Specimen Urine Performing Organization Address [facility] Phone Number [facility] [address] [place] [address] documented in this encounter Visit Diagnoses Diagnosis Urinary tract infection without hematuria, site unspecified - Primary Confusion Unspecified psychosis Bilateral lower extremity edema Edema documented in this encounter Insurance Payer Benefit Plan / Subscriber ID Effective Dates Phone Address Type Group MEDICARE MEDICARE PART A & xxxxxxxxxxx 2001-Present Medicare B [employer] xxxxxxxxxxxx 2011-Present [employer] Guarantor Name Account Type Relation to Date of Phone Billing Patient Address Mary Kendrick Personal/Family 1935 [phone] (Home) [address] [place], [place] (Work) [id number] documented as of this encounter
--- OUTSIDE RECORDS SUMMARY | 2019-02-15 18:58 | XMS REPORT | Summary of Care ---
:1935 Author Organization [facility] Address [address] [facility] [place] [address] Care Team Providers Name Role Phone Evelina Lerner MD Primary Care Provider Reason for Referral MRI/CAT/PET Scan (Routine) Status Reason Specialty Diagnoses / Referred By Referred To Procedures Contact Contact Authorized Diagnoses Left leg swelling Gris Drummondbeth, Procedures VL LOWER EXTREMITY DUPLEX VEINS LEFT [facility] [address] [address] [address] [place] [address] Reason for Visit Reason Comments Burning Sensation with urination Encounter Details Date Type Department Care Team Description 02/15/2019 Office Visit [facility] Yu Drummond, Painful urination (Primary Dx); Practice [facility] Left leg swelling [address] [place] [address] [place] [address] [phone] Allergies Active Allergy Reactions Severity Noted Date Comments Moxifloxacin Hydrochloride GI Reaction 08/13/2007 Cefaclor Monohydrate Rash 08/13/2007 Claritin Rash 08/13/[address] Dye Rash 08/06/2016 Shellfish Allergy Unknown Reaction 02/09/2017 documented as of this encounter (statuses as of 02/15/2019) Medications Medication Sig Dispensed Refills Start Date End Date Status Multiple Take 1 Cap by 0 Active Vitamins-Minerals mouth TWICE (PRESERVISION AREDS 2 DAILY. PO) Calcium Take 1 Tab by 0 Active Carbonate-Vitamin D mouth DAILY. (CALTRATE 600+D PO) Cholecalciferol Take 1 Cap by 0 Active (VITAMIN D3) 33077 mouth EVERY 7 UNITS Oral Cap DAYS. rivaroxaban (XARELTO) Take 1 Tab by 90 [...] Chronic bronchitis, unspecified chronic bronchitis type (HCC) furosemide (LASIX) 20 Take 1 Tab by 30 Tab 1 12/30/2018 Active MG Oral mouth DAILY TabIndications: Edema NEEDED (edema). of both ankles fluconazole (DIFLUCAN) Take 1 Tab by 1 Tab 0 02/15/2019 02/16/2019 Active 150 MG Oral mouth ONE TIME TabIndications: for 1 dose. Painful urination documented as of this encounter (statuses as of 02/15/2019) Active Problems Problem Noted Date Bilateral lower [...] as of this encounter (statuses as of 02/15/2019) Resolved Problems Problem Noted Date Resolved Date [...] as of this encounter (statuses as of 02/15/2019) Immunizations Name Administration Dates Next Due Influenza [...] Sign Reading Time Taken Comments Blood Pressure 138/72 02/15/2019 3:33 PM EDT Pulse 104 02/15/2019 3:33 PM EDT Temperature 36.9 02/15/2019 3:33 PM EDT C (98.4 F) Respiratory Rate - - Oxygen Saturation 89% 02/15/2019 3:33 PM EDT Inhaled Oxygen Concentration - - Weight 68.9 kg (152 lb) 02/15/2019 3:33 PM EDT Height 170.2 cm (5' 7") 02/15/2019 3:33 PM EDT Body Mass Index 23.81 02/15/2019 3:33 PM EDT documented in this encounter Patient Instructions Patient InstructionsYu Drummond NP - 02/15/2019 3:20 PM EDTDo the leg ultrasound today at [facility]- lets make sure you don't have a DVT. Elevate the leg, continue water pills, low salt diet, compression stockings. Urine didn't show a UTI - I have sent the swab to test for yeast infection or bacterial vaginosis. I am going treat for yeast infection, if swab comes back positive for the bacterial vaginosis I will change the treatment and let you know. Call or return if symptoms worsen or fail to improve. If you have any concerning symptoms such as pain in your chest; worsening shortness of breath; - please go immediately to the emergency room. documented in this encounter Progress Notes Yu Drummond NP - 02/15/2019 3:20 PM EDT PATIENT: Mary Kendrick : 1935 DATE OF SERVICE: 02/15/2019 CHIEF COMPLAINT: Chief Complaint Patient presents with Burning Sensation with urination Subjective HISTORY OF PRESENT ILLNESS: Mary Kendrick is a 83-y.o. female. HPI Stinging and burning with urination, no urgency or frequency. No fevers. No vaginal itching or discharge. Stinging is more around labia than urethra. She changed her pads as per her normal yesterday. Malaise yesterday, did not feel like going down for her meals yesterday, had them brought to her room instead. No abdominal pain, n/v/d, constipation. She has diverticulitis, but no symptoms of this currently. Had icecream on Thursday no problem. [facility] did a urine sample today which looked cloudy. Left leg has been swollen, she states this comes and goes, she restarted her water pill, she takes xarelto for previous dvt's. Just started swelling a bit on Thursday, more today. Daughter states she has been forgetting to take her xarelto recently. No chest pain, no shortness of breath, no recent travel or surgeries. Past Medical History: Diagnosis Date Actinic keratosis [...] classified 08/13/2007 Diverticulitis 08/13/2007 Diverticulitis large intestine 2006 s/p bowel resection GERD (gastroesophageal reflux disease) [...] of left eye sees Dr. Roger in [facility], has monthly injections. Mild luminal irregularity of [...] 1 Tab by mouth EVERY 7 DAYS. Calcium Carbonate-Vitamin D (CALTRATE 600+D PO) Take 1 Tab by mouth DAILY. Cholecalciferol (VITAMIN D3) 28011 UNITS Oral Cap Take 1 Cap by mouth EVERY 7 DAYS. fluconazole (DIFLUCAN) 150 MG Oral Tab Take 1 Tab by mouth ONE TIME for 1 dose. 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 , lives alone Prior records of Dr. Bruce reviewed and history update 02/20/2016 Over the last 2 weeks, have you been feeling down, depressed, anxious, or hopeless?: 0 Over the past 2 weeks, have you felt little interest or pleasure in doing things ?: 0 REVIEW OF SYSTEMS: Review of Systems Constitutional: Positive for malaise/fatigue. Negative for chills and fever. Gastrointestinal: Negative for abdominal pain, constipation, diarrhea, nausea and vomiting. Genitourinary: Positive for dysuria. Negative for flank pain, frequency, hematuria and urgency. Musculoskeletal: Negative for joint pain and myalgias. Left leg swelling Objective PHYSICAL EXAM: VITALS: BP 138/72 (BP Location: Left arm, Patient Position: Sitting) | Pulse 104 | Temp 98.4 F (36.9 C) (Tympanic) | Ht 5' 7" (1.702 m) | Wt 152 lb (68.9 kg) | SpO2 (!) 89% | BMI 23.81 kg/m Body mass index is 23.81 kg/ m. Physical Exam Vitals signs and nursing note reviewed. Exam conducted with a entry table operator present. Constitutional: General: She is not in acute distress. Cardiovascular: Rate and Rhythm: Normal rate and regular rhythm. Heart sounds: Normal heart sounds. No murmur. No friction rub. No gallop. Pulmonary: Effort: Pulmonary effort is normal. No respiratory distress. Breath sounds: Normal breath sounds and air entry. Genitourinary: Exam position: Supine. Pubic Area: No rash. Labia: Right: No rash, tenderness or lesion. Left: No rash, tenderness or lesion. Vagina: Vaginal discharge (minimal, white thick with fishy odor) present. Comments: Redness and irritation to both labia, minimal discharge. Musculoskeletal: Right lower leg: No edema ( right leg measures 24.5 cm at calf, 21 cm at ankle). Left lower le+ Pitting Edema (left leg measures 25 cm at calf, 24.5 at ankle) present. Neurological: Mental Status: She is alert. Psychiatric: Behavior: Behavior is cooperative. ASSESSMENT / IMPRESSION: ICD-9-CM ICD-10-CM 1. Painful urination 788.1 R30.9 URINE DIP MANUAL (AMB POCT) URINE CULTURE (C&S) URINE CULTURE (C&S) MARIXA / KARLA / TRIC DNA PROBE fluconazole (DIFLUCAN) 150 MG Oral Tab 2. Left leg swelling 729.81 M79.89 VL LOWER EXTREMITY DUPLEX VEINS LEFT Plan 1. Painful urination Urine dip negative for UTI but sent for culture to confirm. -Will treat for yeast infection for now, see what culture says for BV/Marixa. - URINE DIP MANUAL (AMB POCT) - URINE CULTURE (C&S); Future - URINE CULTURE (C&S) - MARIXA / KARLA / TRIC DNA PROBE; Future - fluconazole (DIFLUCAN) 150 MG Oral Tab; Take 1 Tab by mouth ONE TIME for 1 dose. Dispense: 1 Tab;Refill: 0 2. Left leg swelling Patient to [facility] for leg ultrasound to rule out DVT. - VL LOWER EXTREMITY DUPLEX VEINS LEFT; Future Do the leg ultrasound today at [facility]- lets make sure you don't have a DVT. Elevate the leg, continue water pills, low salt diet, compression stockings. Urine didn't show a UTI - I have sent the swab to test for yeast infection or bacterial vaginosis. I am going treat for yeast infection, if swab comes back positive for the bacterial vaginosis I will change the treatment and let you know. Call or return if symptoms worsen or fail to improve. If you have any concerning symptoms such as pain in your chest; worsening shortness of breath; - please go immediately to the emergency room. 1814 Update - received call from Dr. Don, interventional radiologist at [facility], patient is found to have partially occlussive distal left dvt extending from femoral vein into the popliteal vein. Patient to ER for further eval and treatment. Author: Yu Drummond NP 02/15/2019 18:48 documented in this encounter Plan of Treatment Date Type Specialty Care Team Description 04/07/2019 Office Visit Pulmonary Marcus Angel MD [address] [place] [address] [phone] Name Type Priority Associated Diagnoses Date/Time URINE CULTURE (C&S) Lab Routine Painful urination 02/15/2019 3:50 PM EDT Name Type Priority Associated Diagnoses Order Schedule URINE CULTURE (C&S) Lab Routine Painful urination 1 Occurrences starting 02/15/2019 until 08/17/2019 VL LOWER EXTREMITY Imaging Routine Left leg swelling Expected: 02/15/2019, DUPLEX VEINS LEFT Expires: 04/15/2020 MARIXA / KARLA / TRIC Lab Routine Painful urination 1 Occurrences starting DNA PROBE 02/15/2019 until 08/14/2019 Health Maintenance Due Date Last Done Comments MEDICARE ANNUAL WELLNESS 1935 VISIT ZOSTER IMMUNIZATION SERIES 02/21/1986 (1 of 2) DIABETES SCREENING 12/21/2018 12/21/2017, 04/02/2017, 06/09/2016, Additional history exists INFLUENZA VACCINE (#1) 2019 07/07/2018, 02/09/2017, 02/20/2016, Additional history exists DEPRESSION SCREENING 02/16/2020 02/15/2019 FALL RISK ASSESSMENT 02/16/2020 02/15/2019, 02/15/2019 PNEUMOCOCCAL 65+YRS Completed 07/07/2018, 06/07/2015 HPV IMMUNIZATION SERIES Aged Out No longer eligible based on patient's age to complete this topic MENINGOCOCCAL VACCINE IMM Aged Out No longer eligible based on patient's age to complete this topic documented as of this encounter Goals Goal Patient Goal Associated Recent Patient-Stated? Author Type Problems Progress Depression Depression No Eduarda, jeffery (PHQ-9) Evelina Pablo total score < 5 [...] Summaries. Take all prescribed medications as Self-management Evelina Dooley MD directed Note: This is an individualized [...] Priority Date/Time Associated Diagnosis Comments URINE DIP MANUAL Routine 02/15/2019 3:30 PM Painful urination Results for this (AMB POCT) EDT procedure are in the results section. documented in this encounter Results URINE DIP MANUAL (AMB POCT) (02/15/2019 3:30 PM EDT) URINE GLUCOSE (POCT) Negative Negative mg/dl [facility] POCT URINE BILIRUBIN Small (A) Negative [facility] (POCT) POCT Urine Ketones (POCT) Trace (A) Negative [facility] POCT URINE SPECIFIC 1.015 1.005 - 1.030 [facility] GRAVITY (POCT) POCT URINE BLOOD (POCT) Negative Negative [facility] POCT URINE PH (POCT) 5.0 5.0 - 8.0 [facility] POCT URINE PROTEIN (POCT) Negative Negative mg/dl [facility] POCT URINE UROBILINOGEN 0.2 0.2 - 1.0 mg/dl [facility] (POCT) POCT URINE NITRITES (POCT) Negative Negative [facility] POCT URINE LEUKOCYTES Negative Negative Cells/uL [facility] (POCT) POCT Specimen Urine - Urine specimen (specimen) Performing Organization Address City/State/Zipcode Phone Number [facility] [address] [place] [address] documented in this encounter Visit Diagnoses Diagnosis Painful urination - Primary Dysuria Left leg swelling documented in this encounter Insurance Payer Benefit Plan / Subscriber ID Effective Dates Phone Address Type Group MEDICARE MEDICARE PART A & xxxxxxxxxxx 2001-Present Medicare B [employer] xxxxxxxxxxxx 2011-Present [employer] Guarantor Name Account Type Relation to Date of Phone Billing Patient Address [place] Personal/Family [phone] (Home) [address] [place], [place] ([place]) [address] documented as of this encounter
--- NOTE | 2019-02-15 20:15 | ED ---
Lower Extremity - HPI Summary HPI Summary: Patient presents with outpatient ultrasound of left leg positive for DVT. 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 Daughter states patient has prescription for Xarelto, but is intermittently noncompliant. Patient denies trauma, pain, fever, cough, sore throat, CP, SOB, N/3/D, abdominal pain, change in urine, change in BM. Daughter states she is observed no symptoms inpatient. Daughter states she is unaware of how frequently patient has taken Xarelto in the past week. - History of Current Complaint Chief Complaint: EDExtremityLower Stated Complaint: POSS BLOOD CLOT IN LEFT LEG PER DAUGHTER Time Seen by Provider: 02/15/19 19:38 Hx Obtained From: Patient Mechanism Of Injury: Other Onset/Duration: Days Severity Currently: None Pain Intensity: 0 Pain Scale Used: 0-10 Numeric Associated Signs And Symptoms: Positive: Swelling Aggravating Factor(s): Nothing Alleviating Factor(s): Nothing Able to Bear Weight: Yes - Allergies/Home Medications Allergies/Adverse Reactions: Allergies Allergy/AdvReac Type Severity Reaction Status Date / Time MS Iodine [Iodine] Allergy Hives Verified 02/15/19 19:57 MS Loratadine [From Claritin] Allergy See Comment Verified 02/15/19 19:57 MS Shellfish Allergy Allergy Hives Verified 02/15/19 19:57 [Shellfish Allergy] ENVIRONMENTAL/SEASONAL Allergy SNEEZE,WATERY Uncoded 02/23/17 20:00 HAYFEVER EYES, CONGESTION PMH/Surg Hx/FS Hx/Imm Hx Endocrine/Hematology History: Reports: Hx Anticoagulant Therapy - coumadin Denies: Hx Diabetes, Hx Thyroid Disease Cardiovascular History: Reports: Other Cardiovascular Problems/Disorders Denies: Hx Hypertension, Hx Pacemaker/ICD Respiratory History: Reports: Hx Asthma - 10-12 YEARS, Hx Chronic Obstructive Pulmonary Disease (COPD), Hx Pulmonary Embolism - 1983-IN RIGHT LUNG, Other Respiratory Problems/Disorders - PE RIGHT LUNG History: Reports: Hx Kidney Stones - RIGHT SIDE Denies: Hx Dialysis, Hx Renal Disease Sensory History: Reports: Hx Contacts or Glasses - GLASSES Denies: Hx Cataracts, Hx Hearing Aid Opthamlomology History: Reports: Hx Contacts or Glasses - GLASSES Denies: Hx Cataracts Neurological History: Reports: Other Neuro Impairments/Disorders - OCCASIONAL VERTIGO Denies: Hx Dementia, Hx Seizures Psychiatric History: Denies: Hx Panic Disorder, Hx Substance Abuse - Cancer History Hx Chemotherapy: No Hx Radiation Therapy: No - Surgical History Surgery Procedure, Year, and Place: 1966 RIGHT [facility] 1984 HYSTERECTOMY, [facility]. 2006 BOWEL RESECTION, [facility]. KIDNEY STONE REMOVAL 1 YR. TEETH REMOVED 1 YR AGO/ DENTAL IMPLANTS PUT IN Hx Anesthesia Reactions: No Infectious Disease History: No Infectious Disease History: Denies: Hx Hepatitis, Hx Human Immunodeficiency Virus (HIV), Traveled Outside the [place] in Last 30 Days - Family History Known Family History: Negative: Hypertension, Diabetes - Social History Alcohol Use: None Hx Substance Use: No Substance Use Type: Reports: None Hx Tobacco Use: No Smoking Status (MU): Never Smoked Tobacco Review of Systems Constitutional: Negative Eyes: Negative ENT: Negative Cardiovascular: Negative Respiratory: Negative Gastrointestinal: Negative Genitourinary: Negative Musculoskeletal: Negative Skin: Other Neurological: Negative Psychological: Normal All Other Systems Reviewed And Are Negative: Yes Physical Exam - Summary Physical Exam Summary: No erythema, ecchymosis, deformity, swelling, tightness noted to bilateral lower extremities. Calves soft nontender bilaterally. PMS intact bilaterally. Triage Information Reviewed: Yes Vital Signs On Initial Exam: Initial Vitals Temp Pulse Resp BP Pulse Ox 97.7 F 86 18 148/88 91 02/15/19 18:51 02/15/19 18:51 02/15/19 18:51 02/15/19 18:51 02/15/19 18:51 Vital Signs Reviewed: Yes Appearance: Positive: No Pain Distress Skin: Positive: Warm Head/Face: Positive: Normal Head/Face Inspection Eyes: Positive: Normal Neck: Positive: Supple Respiratory/Lung Sounds: Positive: Clear to Auscultation Cardiovascular: Positive: Normal Abdomen Description: Positive: Nontender Musculoskeletal: Positive: Normal Neurological: Positive: Normal Psychiatric: Positive: Normal AVPU Assessment: Alert - Medhat Coma Scale Best Eye Response: 4 - Spontaneous Best Motor Response: 6 - Obeys Commands Best Verbal Response: 5 - Oriented Coma Scale Total: 15 Procedures - Sedation Patient Received Moderate/Deep Sedation with Procedure: No Diagnostics - Vital Signs Vital Signs Temp Pulse Resp BP Pulse Ox 02/15/19 18:51 97.7 F 86 18 148/88 91 - Laboratory Lab Statement: Any lab studies that have been ordered have been reviewed, and results considered in the medical decision making process. Lower Extremity Course/Dx - Course Course Of Treatment: Patient presents with outpatient ultrasound of left leg positive for DVT. 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 Daughter states patient has prescription for Xarelto, but is intermittently noncompliant. Patient denies trauma, pain, fever, cough, sore throat, CP, SOB, N/3/D, abdominal pain, change in urine, change in BM. Daughter states she is observed no symptoms inpatient. Daughter states she is unaware of how frequently patient has taken Xarelto in the past week. Vital signs within normal limits. Ultrasound positive for partial occlusive thrombus in distal femoral vein, extending into popliteal veins which are noncompressible per ultrasound. Patient has history of noncompliance with Xarelto. Discussed patient with hospitalist Dr. Palacio who recommended patient's started Xarelto at loading dose of 15 mg twice a day 21 days with follow-up with primary care and return to 20 mg daily afterwards. Daughter states she has arranged for someone to monitor patient's medication intake starting tomorrow. - Diagnoses Provider Diagnoses: Left leg DVT Discharge ED - Sign-Out/Discharge Documenting (check all that apply): Patient Departure - Discharge Plan Condition: Stable Disposition: HOME Patient Education Materials: Deep Vein Thrombosis (ED) Referrals: Evelina Lerner MD [Primary Care Provider] - Additional Instructions: Takes Xarelto 15 mg twice a day for 21 days, then follow-up with primary care and continue 20 mg once daily. Return to the ED for any new or worsening symptoms. - Billing Disposition and Condition Condition: STABLE Disposition: Home - Attestation Statements Provider Attestation: I was available for consult. This patient was seen by the PAOLA. The patient was not presented to, seen by, or examined by me. Eduardo Paige MD
[2019-02-15 20:43] VITALS: BP 173/87
== END 2019-02-15 20:41 | disposition home or self-care (01) ==
LOC: ED 18:31
DX: I82.412 Acute embolism and thrombosis of left femoral vein (principal); I82.432 Acute embolism and thrombosis of left popliteal vein; J44.9 Chronic obstructive pulmonary disease, unspecified; Z79.01 Long term (current) use of anticoagulants; Z79.899 Other long term (current) drug therapy; Z88.8 Allergy status to other drugs, medicaments and biological substances; Z91.041 Radiographic dye allergy status; Z86.711 Personal history of pulmonary embolism; Z86.718 Personal history of other venous thrombosis and embolism; Z90.710 Acquired absence of both cervix and uterus; M79.89 Other specified soft tissue disorders
CPT/HCPCS: 99282

== ENCOUNTER 2019-03-27 20:37 | Emergency (ER) | payer MEDICARE, BC ==
--- NOTE | 2019-03-27 21:27 | ED ---
Lower Extremity - HPI Summary HPI Summary: This pt is an 84 y/o female presenting to [facility] c/o increased left lower extremity swelling, pain and SOB since a couple of days ago. Daughter report approximately 1 month ago in February pt was diagnosed with a DVT of LLE and placed on Xarelto. Daughters are concerned pt's LLE swelling has not improved and has worsened compared to yesterday. Additionally pt c/o increased SOB and states at baseline she uses 2L of O2 only at night time but for the past couple of days pt has been needing to use 2L of O2 during the day. Patient denies cough, chest pain. Daughter report pt lives in an assisted living facility and they administer the patient's medications. Daughters report patient had more Xarelto pills left over than she should have and believe pt was not given the right doses. Daughters also state that for the past 2 months pt has had intermittent vaginal bleeding that occur for 4-5 days and then resolved. Pt is s /p hysterectomy in 1982 or 1983). Pt denies hx of tobacco use. PMHx includes asthma, DVT, PE. Pt takes Spiriva and Symbicort for asthma. - History of Current Complaint Chief Complaint: EDShortnessOfBreath Stated Complaint: LT LEG SWOLLEN/DIFFICULTY BREATHING PER DAUGHTER Time Seen by Provider: 03/27/19 21:20 Hx Obtained From: Patient, Family/Portrait Painter Onset of Pain: Days Onset/Duration: Still Present Severity Currently: Moderate Pain Intensity: 3 Pain Scale Used: 0-10 Numeric Timing: Lasting Days Location: Is Discrete @ - left lower extremity Associated Signs And Symptoms: Positive: Swelling, Other - SOB Aggravating Factor(s): Nothing Alleviating Factor(s): Nothing Able to Bear Weight: Yes - Allergies/Home Medications Allergies/Adverse Reactions: Allergies Allergy/AdvReac Type Severity Reaction Status Date / Time Iodinated Contrast Media Allergy Hives Verified 03/27/19 21:27 loratadine [From Claritin] Allergy Edema Verified 03/27/19 21:27 shellfish derived Allergy Hives Verified 03/27/19 21:27 ENVIRONMENTAL/SEASONAL Allergy SNEEZE,WATERY Uncoded 03/27/19 21:27 HAYFEVER EYES, CONGESTION Home Medications: Home Medications Budesonide/Formote 80/4.5(NF) [Symbicort 80/4.5 (NF)] 2 puff INH BID 03/27/19 [ History Confirmed 03/27/19] Furosemide TAB* [Lasix TAB*] 20 mg PO DAILY 03/27/19 [History Confirmed 03/27/19 ] Rivaroxaban TAB(*) [Xarelto 20 mg] 20 mg PO DAILY 03/27/19 [History Confirmed ] Vit A/Vit C/Vit E/Zinc/Copper [Preservision Areds Softgel] 1 each PO DAILY 03/27 [History Confirmed 03/27/19] PMH/Surg Hx/FS Hx/Imm Hx Endocrine/Hematology History: Reports: Hx Anticoagulant Therapy - coumadin Denies: Hx Diabetes, Hx Thyroid Disease Cardiovascular History: Reports: Hx Deep Vein Thrombosis, Other Cardiovascular Problems/Disorders Denies: Hx Hypertension, Hx Pacemaker/ICD Respiratory History: Reports: Hx Asthma - 10-12 YEARS, Hx Chronic Obstructive Pulmonary Disease (COPD), Hx Pulmonary Embolism - 1983-IN RIGHT LUNG, Other Respiratory Problems/Disorders - PE RIGHT LUNG History: Reports: Hx Kidney Stones - RIGHT SIDE Denies: Hx Dialysis, Hx Renal Disease Sensory History: Reports: Hx Contacts or Glasses - GLASSES Denies: Hx Cataracts, Hx Hearing Aid Opthamlomology History: Reports: Hx Contacts or Glasses - GLASSES Denies: Hx Cataracts Neurological History: Reports: Other Neuro Impairments/Disorders - OCCASIONAL VERTIGO Denies: Hx Dementia, Hx Seizures Psychiatric History: Denies: Hx Panic Disorder, Hx Substance Abuse - Cancer History Hx Chemotherapy: No Hx Radiation Therapy: No - Surgical History Surgical History: Yes Surgery Procedure, Year, and Place: 1965 RIGHT INGUINAL HERNIA REPAIR, [facility]. [place] [facility] [place] [facility] [place] KIDNEY STONE REMOVAL 1 YR. TEETH REMOVED 1 YR AGO/ DENTAL IMPLANTS PUT IN Hx Anesthesia Reactions: No Infectious Disease History: No Infectious Disease History: Denies: Hx Hepatitis, Hx Human Immunodeficiency Virus (HIV), Traveled Outside the [place] in Last 30 Days - Family History Known Family History: Negative: Hypertension, Diabetes - Social History Alcohol Use: None Hx Substance Use: No Substance Use Type: Reports: None Hx Tobacco Use: No Smoking Status (MU): Never Smoked Tobacco Review of Systems Negative: Fever Negative: Chest Pain Positive: Shortness Of Breath. Negative: Cough Genitourinary: Other - POSITIVE: vaginal bleeding Musculoskeletal: Other - POSITIVE: LLE pain Positive: Edema - left lower extremity All Other Systems Reviewed And Are Negative: Yes Physical Exam - Summary Physical Exam Summary: Appearance: Elderly well-appearing woman who is lying in the stretcher in no acute distress. Vital signs notable for slight tachycardia and hypoxemia. Skin: Warm, dry, no obvious rash Eyes: sclera anicteric, no conjunctival pallor ENT: mucous membranes moist, pharynx appears normal Neck: Supple, nontender Respiratory: Clear to auscultation, no signs of respiratory distress Cardiovascular: Normal S1, S2. No murmurs. Normal distal pulses in tibial and radial bilaterally. Abdomen: Soft, nontender, normal active bowel sounds present Musculoskeletal: Left leg with diffuse swelling from the knee down with generalized erythema Neurological: A&Ox3, awake and alert, mentation is normal, speech is fluent and appropriate Psychiatric: affect is normal, does not appear anxious or depressed Triage Information Reviewed: Yes Vital Signs On Initial Exam: Initial Vitals Temp Pulse Resp BP Pulse Ox 99.8 F 86 16 142/67 86 03/27/19 20:53 03/27/19 20:53 03/27/19 20:53 03/27/19 20:53 03/27/19 20:53 Vital Signs Reviewed: Yes Procedures - Sedation Patient Received Moderate/Deep Sedation with Procedure: No Diagnostics - Vital Signs Vital Signs Temp Pulse Resp BP Pulse Ox 03/27/19 20:53 99.8 F 86 16 142/67 86 - Laboratory Result Diagrams: 03/27/19 21:23 03/27/19 21:23 Lab Statement: Any lab studies that have been ordered have been reviewed, and results considered in the medical decision making process. - Radiology Chest XR Radiology Interpretation Completed By: ED Physician Summary of Radiographic Findings: No acute process. - CT Chest/Thorax CTA CT Interpretation Completed By: Radiologist Summary of CT Findings: IMPRESSION: 1. No visible acute pulmonary embolism. 2. There is moderate centrilobular emphysema at the lung bases and there is significant bibasilar subsegmental atelectasis or parenchymal scarring. Dr. Ortiz has reviewed this report. - Ultrasound No standard instances Ultrasound Interpretation Completed By: Radiologist Summary of Ultrasound Findings: US of left lower extremity IMPRESSION: No acute DVT of left lower extremity. 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 Dr. Ortiz has reviewed this report. - EKG 21:13 Cardiac Rate: NL - at 99 bpm EKG Rhythm: Sinus Tachycardia EKG Comparison: No Significant Change - from previous Summary of EKG Findings: EKG at 21:13 shows sinus tachycardia at 99 bpm, atrial premature complexes, minimal ST depression, lateral leads. No STEMI. No change from previous. Lower Extremity Course/Dx - Course Assessment/Plan: Pt is an 84 y/o female, with hx of asthma, PE, DVT currently on Xarelto, presenting to [facility] c/o increased left lower extremity swelling, pain and SOB since a couple of days ago. Daughters are concerned pt's LLE swelling has not improved and has worsened compared to yesterday. Additionally pt c/o increased SOB and states at baseline she uses 2L of O2 only at night time but for the past couple of days pt has been needing to use 2L of O2 during the day. Patient denies cough, chest pain. Labs were obtained and are unremarkable except for glucose of 150. Chest XR shows no acute process. US of left lower extremity shows left lower extremity IMPRESSION: No acute DVT of left lower extremity. 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 Chest/thorax CTA reveals 1. No visible acute pulmonary embolism. 2. There is moderate centrilobular emphysema at the lung bases and there is significant bibasilar subsegmental atelectasis or parenchymal scarring. Pt will be discharged home with follow up from her PCP. She was instructed to return to the ED for any new or worsening symptoms. - Diagnoses Differential Diagnosis/HQI/PQRI: Positive: DVT, Phlebitis, Other - pulmonary embolus Provider Diagnoses: DVT (deep venous thrombosis), Dyspnea Discharge ED - Sign-Out/Discharge Documenting (check all that apply): Patient Departure - Discharge home - Discharge Plan Condition: Stable Disposition: HOME Patient Education Materials: Dyspnea (ED) Referrals: Evelina Lerner MD [Primary Care Provider] - 2 Days (if no better) Additional Instructions: Your CT scan did not show any spread of the clot in the left leg to the lung, so at this point just stay the course with the xarelto. - Billing Disposition and Condition Condition: STABLE Disposition: Home - Attestation Statements Document Initiated by Scribe: Yes Documenting Scribe: Arlyn Olivas Provider For Whom Scribe is Documenting (Include Credential): Shyam Ortiz MD Scribe Attestation: I, Arlyn Olivas, scribed for Shyam Ortiz MD on 03/28/19 at 1816. Scribe Documentation Reviewed: Yes Provider Attestation: The documentation as recorded by the Arlyn duran accurately reflects the service I personally performed and the decisions made by me, Shyam Ortiz MD Status of Scrharjinder Document: Viewed
[2019-03-27 21:35] LABS: ABS Eosinophils 0.1 10^3/ul (0-0.6); ABS Monocytes 0.8 10^3/ul (0-0.8); ABS Neutrophils 4.5 10^3/ul (1.5-7.7); Eosinophil % 2.3 %; Hematocrit 46 % (35-47); Hemoglobin 15.1 g/dL (12.0-16.0); Mean Corpuscular HGB Conc 33 g/dL (31-36); Mean Corpuscular Hemoglobin 29 pg (27-31); Mean Corpuscular Volume 89 fL (80-97); Mean Platelet Volume 7.6 fL (7.4-10.4); Nucleated Red Blood Cells % 0.2; Platelet Count 236 10^3/uL (150-450); Red Blood Count 5.21 10^6 /uL (3.70-4.87); Red Cell Distribution Width 15 % (10-15); White Blood Count 6.6 10^3/uL (3.5-10.8)
[2019-03-27] MEDS ORDERED: diPHENhydraMINE IV* 50 MG/ML 1 ml VIAL (BENADRYL) SLOW PUSH ONE (21:39)
[2019-03-27 21:48] LABS: Albumin 3.7 g/dL (3.2-5.2); Albumin/Globulin Ratio 1.2 (1-3); BUN/Creatinine Ratio 14.4 (8-20); Calcium 9.4 mg/dL (8.6-10.3); EGFR African American 72.4 (>60); EGFR Non-African American 59.8 (>60); Globulin 3.2 g/dL (2-4); Potassium 3.5 mmol/L (3.5-5.0); Total Bilirubin 0.9 mg/dL (0.2-1.0); Total Protein 6.9 g/dL (6.4-8.9)
[2019-03-27 21:51] LABS: Troponin I 0.01 ng/mL (<0.04)
[2019-03-27] MEDS ORDERED: Iodixanol* (CONTRAST) 320 MG/ML 100 ML SDV IV ONE (23:24)
[2019-03-28 01:37] VITALS: BP 147/87
== END 2019-03-28 01:37 | disposition home or self-care (01) ==
LOC: ED 20:37
DX: I82.402 Acute embolism and thrombosis of unspecified deep veins of left lower extremity (principal); Z86.718 Personal history of other venous thrombosis and embolism; R06.00 Dyspnea, unspecified; Z79.01 Long term (current) use of anticoagulants; R06.02 Shortness of breath
CPT/HCPCS: 36415; 71046; 71275; 80053; 83605; 84484; 85025; 93005; 96374; 99283; J1200; Q9967